=== PATIENT | female | born 1985 | race Caucasian/White ===

== ENCOUNTER 2017-01-16 19:59 | Emergency (ER) | payer MEDICARE, MEDICAID ==
[2017-01-16 20:08] VITALS: BP 112/78
--- NOTE | 2017-01-16 21:28 | EDM.PDOC ---
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 the patient reports that her first symptoms were started on of this week. She was seen at the [facility] . she had a wet prep performed which was positive for bacterial vaginosis. She started on metronidazole twice a day for 7 days. She states that she has been taking this but she is having symptoms of a dry mouth, a bad taste in her mouth and other side effects. States that the itching and burning is continuing. She says she has vaginal burning all the time. She denies any vaginal discharge. She denies any fevers, chills, nausea or vomiting. States that she shower prior to coming to the ER she showered and used soap free of dyes and perfumes. 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 She states that she did not have any lesions. She is currently on valcyclovir prophylactically. Patient reports that she has not been sexual active in several months. She denies any chance of . She denies any chance of STDs as she has been tested previously. - Related Data Allergies/ADRs: Allergies Allergy/AdvReac Type Severity Reaction Status Date / Time No Known Allergies Allergy Verified 01/16/17 20:08 Home Meds: Home Meds Advair. 1 puff INH BID 09/05/14 [History] Control. 1 tab PO DAILY 09/05/14 [History] Montelukast [Singulair] 10 mg PO DAILY 09/05/14 [History] Omeprazole [Prilosec] 20 mg PO BID 09/05/14 [History] Albuterol Sulfate [Albuterol Sulfate HFA] 8.5 gm IH Q4HR PRN 02/16/15 [History] FLUoxetine [PROzac] 20 mg PO DAILY 05/08/15 [History] Cetirizine [ZyrTEC] 10 mg PO DAILY #30 tablet 05/23/16 [Rx] Valcyclovir. 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) Other OB/BYN History: 2006 Psychiatric History: Reports: Anxiety - Infectious Disease History 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, MRSA Social & Family History - Family History Family Medical History: Noncontributory - Tobacco Use Smoking Status *Q: Current Every Day Smoker Years of Tobacco use: 12 Packs/Tins Daily: 1 Second Hand Smoke Exposure: No - Caffeine Use Caffeine Use: Reports: Soda - Alcohol Use Days Per Week of Alcohol Use: 0 - Recreational Drug Use Recreational Drug Use: No - Living Situation & Occupation Living situation: Reports: alone ED ROS GENERAL - Review of Systems Review Of Systems: See Below Constitutional: Denies: fever, chills GI/Abdominal: Denies: Nausea, Vomiting : Reports: other (vaginal burning and itching; denies vaginal discharge ) ED EXAM, RENAL/ - Physical Exam Exam: See Below Exam Limited By: No limitations General Appearance: alert, WD/WN, no apparent distress Respiratory/Chest: no respiratory distress, lungs clear, normal breath sounds Cardiovascular: normal peripheral pulses, regular rate, rhythm, no murmur (Female) Exam: Normal external exam, Other (refuse a spec exam; labia majoria is erythematous and slightly swollen; no discharge appreciated). No: Vaginal discharge Neurological: alert, oriented Psychiatric: normal affect, normal mood Skin Exam: Warm, Dry, Normal color Course - Vital Signs Last Recorded V/S: Last Vital Signs Temp 36.8 C 01/16/17 20:06 Pulse 80 01/16/17 20:06 Resp 18 01/16/17 20:06 BP 112/78 01/16/17 20:06 Pulse Ox 100 01/16/17 20:06 - Orders/Labs/Meds Labs: Laboratory Tests 01/16/17 Range/Units 20:37 Urine Color Yellow (Yellow) Urine Appearance Clear (Clear) Urine pH 5.0 (5.0-8.0) Ur Specific [place] > or = 1.030 (1.005-1.030) Urine Protein Negative (Negative) Urine Glucose (UA) Negative (Negative) Urine Ketones Trace H (Negative) Urine Occult Blood Negative (Negative) Urine Nitrite Negative (Negative) Urine Bilirubin Negative (Negative) Urine Urobilinogen 0.2 (0.2-1.0) Ur Leukocyte Esterase Trace H (Negative) Urine RBC 0-5 (0-5) /hpf Urine WBC 0-5 (0-5) /hpf Urine Bacteria Rare (FEW) /hpf Urine Mucus Few (FEW) /hpf - Re-Assessments/Exams Free Text/Narrative Re-Assessment/Exam: 01/16/17 21:23 UA has trace ketones and trace leuks. Wet prep is negative for Alisha, bacterial vaginosis and Trichomonas. I will switch the patient from oral metronidazole to vaginal MetroGel as I feel this will decrease her symptoms. I will have her continue on this despite her wet prep being negative today. I am unsure what the result was at [facility] on . Calmoseptine applied to the vaginal area prior to discharge for symptom relief. Instructions as documented. Departure - Departure Time of Disposition: 21:24 Disposition: Home, Self-Care 01 Condition: fair Clinical Impression: Bacterial vaginosis Prescriptions: metroNIDAZOLE [Metrogel-Vaginal] 70 gm VG DAILY #5 gel.w.appl Instructions: Bacterial Vaginosis, [id number] Referrals: Terrie Malin PA-C [Primary Care Provider] - Forms: ED Department Discharge Additional Instructions: Stopped taking the oral metronidazole Start metrogel one applicator full at hour of sleep vaginally x5 days. Follow up with your primary care provider this week if you're not feeling better. Use soaps free of dyes, perfumes or any other irritants to the area. Please returned ER should your symptoms change or worsen.
== END 2017-01-16 21:40 | disposition home or self-care (01) ==
LOC: JD.ED 19:59
DX: N76.0 Acute vaginitis (principal); F17.210 Nicotine dependence, cigarettes, uncomplicated; Z79.899 Other long term (current) drug therapy; Z87.440 Personal history of urinary (tract) infections
CPT/HCPCS: 81001; 87210; 87808; 99283; 99284

== ENCOUNTER 2017-01-26 21:06 | Emergency (ER) | payer MEDICARE, MEDICAID ==
[2017-01-26 21:41] VITALS: BP 112/85
--- NOTE | 2017-01-26 22:16 | EDM.PDOC ---
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 She states she has been using metrogel as prescribed as well as topical calmoseptine, given to her following her most recent visit on 09/24. She states she was sexually active with a new partner on 01/23/17, did use a condom, not sure if she is having a reaction to that. She denies any other change in vaginal discharge or detergents, undergarments, other body products, ect. Reports metrogel helped initially but about 3-4 days ago (around the time she was sexually active) she had worsening external genital rash. She denies that rash is consistent with herpes outbreak Symptom Onset Date: 01/16/17 Location: Reports: vaginal Quality: Reports: burning Associated Symptoms: Denies: vaginal discharge - Related Data Allergies/ADRs: Allergies Allergy/AdvReac Type Severity Reaction Status Date / Time No Known Allergies Allergy Verified 01/26/17 21:32 Home Meds: Home Meds Advair. 1 puff INH BID 09/05/14 [History] Control. 1 tab PO DAILY 09/05/14 [History] Montelukast [Singulair] 10 mg PO DAILY 09/05/14 [History] Omeprazole [Prilosec] 20 mg PO BID 09/05/14 [History] Albuterol Sulfate [Albuterol Sulfate HFA] 8.5 gm IH Q4HR PRN 02/16/15 [History] FLUoxetine [PROzac] 20 mg PO DAILY 05/08/15 [History] Cetirizine [ZyrTEC] 10 mg PO DAILY #30 tablet 05/23/16 [Rx] Valcyclovir. 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: 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 Psychiatric History: Reports: Anxiety Endocrine/Metabolic History: Reports: None Oncologic (Cancer) History: Reports: None - Infectious Disease History 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 Denies: fever, chills Respiratory: Reports: No Symptoms Cardiovascular: Reports: No symptoms GI/Abdominal: Reports: No symptoms : Reports: other (reports persistent vaginal itching as well as burning to skin. ). Denies: discharge, dysuria, hematuria, irregular menses Skin: Reports: rash, erythema (rash and mild erythema diffusely to external genitalia) ED EXAM, RENAL/ - Physical Exam Exam: See Below Exam Limited By: No limitations General Appearance: alert, WD/WN, no apparent distress Respiratory/Chest: lungs clear, normal breath sounds Cardiovascular: regular rate, rhythm, no murmur GI/Abdominal: normal bowel sounds, soft, non tender (Female) Exam: Normal speculum exam, Vaginal discharge, Other (erythematous vaginal mucosa. external bilateral labia, proximal to pubic symphysis is a folliculitis type rash. no ulcers, no vesicles. diffuse erythema present). No: Adnexal tenderness, Cervical discharge, Cervix motion tenderness Neurological: alert, oriented Psychiatric: normal affect, normal mood Course - Vital Signs Text/Narrative:: 2229 Wet prep done, as well as testing for GC/Chlamydia as patient does report having a new partner recently. Has not been tested for GC/Chlamydia for a least a couple of years. LMP was approx 01/04, has been regular. 2241 Wet prep is negative for yeast, clue cells, and trichomoniasis. 3 GC/Chlamydia pending, her hCG is negative. UA with 1+ occult blood, 1+ leuk esterace WBC 20-30 bacteria = many Urine culture is pending. Will notify patient of results once available. Discussed that with negative wet prep, I did not feel she needed to be treated with oral diflucan or oral metronidazole. Did recommend trial of topical nystatin, use as directed. Can also consider benadryl or other OTC antihistamine as directed for itching. Advised patient it was possible she is also having an allergic reaction to condom use. If symptoms not improving, may need to consider short course of oral steroid (medrol). Did recommend patient to f/u in family practice clinic in 3-5 days if not improving, recommend return to ED as needed. Last Recorded V/S: Last Vital Signs Temp 97.8 F 01/26/17 21:34 Pulse 86 01/26/17 21:34 Resp 16 01/26/17 21:34 BP 112/85 01/26/17 21:34 Pulse Ox - Orders/Labs/Meds Orders: Active Orders 24 hr Category Date Time Status GC/CHLAMYDIA BY PCR [MOLEC] Stat Lab 01/26/17 22:10 Received Labs: Laboratory Tests 01/26/17 01/26/17 Range/Units 21:53 21:53 Urine Color Yellow (Yellow) Urine Appearance Clear (Clear) Urine pH 6.0 (5.0-8.0) Ur Specific [place] > or = 1.030 (1.005-1.030) Urine Protein Trace H (Negative) Urine Glucose (UA) Negative (Negative) Urine Ketones Trace H (Negative) Urine Occult Blood 1+ H (Negative) Urine Nitrite Negative (Negative) Urine Bilirubin Negative (Negative) Urine Urobilinogen 0.2 (0.2-1.0) Ur Leukocyte Esterase 1+ H (Negative) Urine RBC 0-5 (0-5) /hpf Urine WBC 20-30 H (0-5) /hpf Ur Squamous Epith Cells 20-30 H (0-5) /hpf Urine Bacteria Many H (FEW) /hpf Urine Mucus Moderate H (FEW) /hpf Urine HCG, Qual Negative (NEGATIVE) Departure - Departure Time of Disposition: 22:43 Disposition: Home, Self-Care 01 Condition: good Clinical Impression: Vaginitis and vulvovaginitis Prescriptions: Nystatin [Nystatin Crm] 30 gm TOP BID #30 gm Instructions: Vaginitis Referrals: Terrie Malin PA-C [Primary Care Provider] - Forms: ED Department Discharge Additional Instructions: Your wet prep is negative, so you do not have indication of yeast infection, bacterial vaginosis, or trichomoniasis. Your gonorrhea/Chlamydia is pending, will notify you of results. I do not feel your need an oral anti-fungal medication, but will prescribe a topical anti-fungal cream to use. Also recommend use of benadryl, take as directed. Caution on drowsiness. This may help with itching and burning as it is also possible you are having an allergic reaction to specific condom used recently.If neither of these treatments improves your symptoms, recommend followup with your primary provider, or return to ED as needed - My Orders Last 24 Hours: My Active Orders 01/26/17 22:10 GC/CHLAMYDIA BY PCR [MOLEC] Stat - Assessment/Plan Last 24 Hours: My Active Orders 01/26/17 22:10 GC/CHLAMYDIA BY PCR [MOLEC] Stat
[2017-01-26 23:56] LABS: C. TRACHOMATIS BY PCR NOT DETECTED; N. GONORRHOEAE BY PCR NOT DETECTED
== END 2017-01-26 23:05 | disposition home or self-care (01) ==
LOC: JD.ED 21:06
DX: N76.0 Acute vaginitis (principal); J45.909 Unspecified asthma, uncomplicated; F41.9 Anxiety disorder, unspecified; Z79.899 Other long term (current) drug therapy
CPT/HCPCS: 81001; 81025; 87210; 87491; 87591; 87808; 99283

== ENCOUNTER 2017-02-18 12:36 | Emergency (ER) | payer MEDICARE, MEDICAID ==
[2017-02-18 12:49] VITALS: BP 118/74
[2017-02-18] MEDS ORDERED: Albuterol 0.083% 2.5 MG/3 ML Neb Soln NEB ONE (13:11)
--- NOTE | 2017-02-18 13:56 | EDM.PDOC ---
ED HISTORY OF PRESENT ILLNESS - General Chief Complaint: Chest Pain Stated Complaint: CHEST PAIN Time Seen by Provider: 02/18/17 12:51 Source of Information: Reports: Patient, RN notes reviewed - History of Present Illness INITIAL COMMENTS - FREE TEXT/NARRATIVE: 31-year-old female with complaints of shortness of breath and chest heaviness and tightness. She has had some mild cough and nasal and sinus congestion symptoms for a few days. She is currently on an antibiotic for sinus infection. She did use her handheld albuterol inhaler a short time ago but that "did not help much". No abdominal pain nausea or vomiting. - Related Data Allergies/ADRs: Allergies Allergy/AdvReac Type Severity Reaction Status Date / Time No Known Allergies Allergy Verified 02/18/17 12:45 Home Meds: Home Meds Advair. 1 puff INH BID 09/05/14 [History] Control. 1 tab PO DAILY 09/05/14 [History] Montelukast [Singulair] 10 mg PO DAILY 09/05/14 [History] Omeprazole [Prilosec] 20 mg PO BID 09/05/14 [History] Albuterol Sulfate [Albuterol Sulfate HFA] 8.5 gm IH Q4HR PRN 02/16/15 [History] FLUoxetine [PROzac] 20 mg PO DAILY 05/08/15 [History] Cetirizine [ZyrTEC] 10 mg PO DAILY #30 tablet 05/23/16 [Rx] Valcyclovir. 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: 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 Psychiatric History: Reports: Anxiety Endocrine/Metabolic History: Reports: None Oncologic (Cancer) History: Reports: None - Infectious Disease History 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, MRSA Social & Family History - Family History Family Medical History: Noncontributory - Tobacco Use Smoking Status *Q: Never Smoker Years of Tobacco use: 12 Packs/Tins Daily: 1 Second Hand Smoke Exposure: No - Caffeine Use Caffeine Use: Reports: Soda - Alcohol Use Days Per Week of Alcohol Use: 0 - Recreational Drug Use Recreational Drug Use: No - Living Situation & Occupation Living situation: Reports: alone ED ROS GENERAL - Review of Systems Review Of Systems: See Below Constitutional: Denies: fever, chills HEENT: Reports: Rhinitis, Sinus problem Respiratory: Reports: Shortness of Breath, Wheezing, Cough Cardiovascular: Reports: Chest pain (Mild anterior chest tightness) GI/Abdominal: Denies: Abdominal pain, Nausea, Vomiting Musculoskeletal: Reports: no symptoms Skin: Reports: no symptoms Neurological: Reports: No Symptoms ED EXAM, GENERAL - Physical Exam Exam: See Below General Appearance: alert, no apparent distress Eye Exam: bilateral eye: PERRL Nose: normal inspection Throat/Mouth: Normal inspection, Normal oropharynx Head: atraumatic. No: facial swelling Neck: supple, full range of motion. No: lymphadenopathy (L), lymphadenopathy (R ) Respiratory/Chest: no respiratory distress, lungs clear, wheezing (Slight). No : rhonchi, stridor Cardiovascular: regular rate, rhythm Extremities: normal inspection, normal range of motion Neurological: alert, no motor/sensory deficits Skin Exam: Warm, Dry, Normal color Course - Vital Signs Last Recorded V/S: Last Vital Signs Temp 97.2 F 02/18/17 12:46 Pulse 100 02/18/17 12:46 Resp 17 02/18/17 12:46 BP 118/74 02/18/17 12:46 Pulse Ox 100 02/18/17 13:22 - Orders/Labs/Meds Orders: Active Orders 24 hr Category Date Time Status RT Aerosol Therapy [RC] ASDIRECTED Care 02/18/17 13:11 Active Meds: Medications Discontinued Medications Generic Name Dose Route Start Last Admin Trade Name Freq PRN Reason Stop Dose Admin Albuterol 2.5 mg 02/18/17 13:11 02/18/17 13:21 Proventil Neb Soln NEB 02/18/17 13:12 2.5 mg ONETIME ONE Administration - Re-Assessments/Exams Free Text/Narrative Re-Assessment/Exam: 02/18/17 16:32 Have been an albuterol neb, that has helped her, discharge instructions as documented Departure - Departure Time of Disposition: 13:54 Disposition: Home, Self-Care 01 Condition: fair Clinical Impression: Dyspnea Qualifiers: Dyspnea type: shortness of breath Qualified Code(s): R06.02 - Shortness of breath Upper respiratory infection Qualifiers: URI type: unspecified URI Qualified Code(s): J06.9 - Acute upper respiratory infection, unspecified Instructions: Shortness of Breath, [id number], Upper Respiratory Infection, Adult, [id number] Referrals: Terrie Malin PA-C [Primary Care Provider] - Forms: ED Department Discharge Additional Instructions: Continue current medications, continue to use your inhaler as prescribed when needed for difficulty breathing, continue antibiotic as prescribed, followup clinic if not much better within 5-7 days as expected - My Orders Last 24 Hours: My Active Orders 02/18/17 13:11 RT Aerosol Therapy [RC] ASDIRECTED - Assessment/Plan Last 24 Hours: My Active Orders 02/18/17 13:11 RT Aerosol Therapy [RC] ASDIRECTED
== END 2017-02-18 14:04 | disposition home or self-care (01) ==
LOC: JD.ED 12:36
DX: J06.9 Acute upper respiratory infection, unspecified (principal); J45.909 Unspecified asthma, uncomplicated; F41.9 Anxiety disorder, unspecified; Z87.440 Personal history of urinary (tract) infections; Z79.899 Other long term (current) drug therapy
CPT/HCPCS: 94664; 99283; 99285-25

== ENCOUNTER 2017-12-28 22:46 | Emergency (ER) | payer MEDICARE, MEDICAID ==
[2017-12-28 22:58] VITALS: BP 116/78
--- NOTE | 2017-12-29 | EDM.PDOC ---
ED HPI GENERAL MEDICAL PROBLEM - General Chief Complaint: Abdominal Pain Stated Complaint: STOMACH PAIN Time Seen by Provider: 12/28/17 23:17 Source of Information: Reports: Patient History Limitations: Reports: No Limitations - History of Present Illness INITIAL COMMENTS - FREE TEXT/NARRATIVE: The patient had some abdominal pain on Wednesday. She felt she was constipated. She did not have a bowel movement for a few days. She took some medicine to help with that and she then had diarrhea. She has had a few episodes of diarrhea since then. She also has some generalized abdominal pain and she feels like she is gassy. She does not think she is . She is under lots of stress lately due to some issues with her puppy. She has no dysuria. She has no nasuea or vomiting and she can still eat. Onset: Gradual Duration: Day(s): (3) Location: Reports: Abdomen Quality: Reports: Ache Severity: Mild Improves with: Reports: None Worsens with: Reports: None Associated Symptoms: Reports: No Other Symptoms Abdomen Pain Score (Numeric/FACES): 6 - Related Data Allergies Allergy/AdvReac Type Severity Reaction Status Date / Time No Known Allergies Allergy Verified 02/18/17 12:45 Home Meds: Home Meds Advair. 1 puff INH BID 09/05/14 [History] Control. 1 tab PO DAILY 09/05/14 [History] Montelukast [Singulair] 10 mg PO DAILY 09/05/14 [History] Omeprazole [Prilosec] 20 mg PO BID 09/05/14 [History] Albuterol Sulfate [Albuterol Sulfate HFA] 8.5 gm IH Q4HR PRN 02/16/15 [History] FLUoxetine [PROzac] 20 mg PO DAILY 05/08/15 [History] Cetirizine [ZyrTEC] 10 mg PO DAILY #30 tablet 05/23/16 [Rx] Valcyclovir. 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) Other OB/BYN History: 2006 Psychiatric History: Reports: Anxiety Endocrine/Metabolic History: Reports: None Oncologic (Cancer) History: Reports: None - Infectious Disease History 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, MRSA Social & Family History - Family History Family Medical History: Noncontributory - Tobacco Use Smoking Status *Q: Never Smoker Years of Tobacco use: 12 Packs/Tins Daily: 1 Second Hand Smoke Exposure: No - Caffeine Use Caffeine Use: Reports: Soda - Alcohol Use Days Per Week of Alcohol Use: 0 - Recreational Drug Use Recreational Drug Use: No - Living Situation & Occupation Living situation: Reports: Alone ED ROS GENERAL - Review of Systems Review Of Systems: See Below Constitutional: Reports: No Symptoms HEENT: Reports: No Symptoms Respiratory: Reports: No Symptoms Cardiovascular: Reports: No Symptoms Endocrine: Reports: No Symptoms GI/Abdominal: Reports: Abdominal Pain, Diarrhea. Denies: Nausea, Vomiting : Reports: No Symptoms Musculoskeletal: Reports: No Symptoms ED EXAM, GI/ABD - Physical Exam Exam: See Below Exam Limited By: No Limitations General Appearance: Alert, No Apparent Distress Ears: Normal External Exam Nose: Normal Inspection Head: Atraumatic, Normocephalic Neck: Normal Inspection Respiratory/Chest: No Respiratory Distress, Lungs Clear, Normal Breath Sounds Cardiovascular: Regular Rate, Rhythm, No Edema, No Murmur GI/Abdominal Exam: Soft, Non-Tender, No Organomegaly, No Mass Back Exam: Normal Inspection Extremities: Normal Inspection Course - Vital Signs Last Recorded V/S: Last Vital Signs Temp 97.7 F 12/28/17 22:56 Pulse 96 12/28/17 22:56 Resp 16 12/28/17 22:56 BP 116/78 12/28/17 22:56 Pulse Ox 100 12/28/17 22:56 - Orders/Labs/Meds Orders: Active Orders 24 hr Category Date Time Status Abdomen 1V Upright [CR] Stat Exams 12/28/17 23:24 Taken Famotidine [Pepcid] Med 12/29/17 00:03 Once 20 mg PO ONETIME ONE - Re-Assessments/Exams Free Text/Narrative Re-Assessment/Exam: 12/29/17 00:00 I ordered an x-ray of her abdomen. 12/29/17 00:04 Her x-ray looks good. I will give her some pepcid and discharge her home. Departure - Departure Time of Disposition: 00:05 Disposition: Home, Self-Care 01 Condition: Good Clinical Impression: Abdominal pain - Discharge Information Referrals: Keenan Angela [Primary Care Provider] - 1 Week Forms: ED Department Discharge Additional Instructions: Take pepcid daily for 1 week. Drink plenty of water. Follow up with your doctor this week. Please return if you are worse. - My Orders Last 24 Hours: My Active Orders 12/28/17 23:24 Abdomen 1V Upright [CR] Stat 12/29/17 00:03 Famotidine [Pepcid] 20 mg PO ONETIME ONE - Assessment/Plan Last 24 Hours: My Active Orders 12/28/17 23:24 Abdomen 1V Upright [CR] Stat 12/29/17 00:03 Famotidine [Pepcid] 20 mg PO ONETIME ONE
[2017-12-29] MEDS: Famotidine 20 MG Tab PO ONE (00:11)
--- NOTE | 2017-12-29 07:15 | CR ---
Abdomen: Upright view of the abdomen was obtained. Comparison: Prior abdominal x-ray of 06/09/16. Bowel gas pattern appears normal. No free air is seen. Bony structures are unremarkable. No abnormal calcifications or discrete soft tissue abnormality is appreciated. Impression: 1. No abnormality is seen on upright view of the abdomen. Diagnostic code #1
== END 2017-12-29 00:17 | disposition home or self-care (01) ==
LOC: JD.ED 22:46
DX: R10.84 Generalized abdominal pain (principal); J45.909 Unspecified asthma, uncomplicated; Z79.899 Other long term (current) drug therapy
CPT/HCPCS: 74018; 99284; A9270; 99283

== ENCOUNTER 2018-02-06 13:48 | Emergency (ER) | payer MEDICARE, MEDICAID ==
[2018-02-06 14:28] VITALS: BP 113/85
--- NOTE | 2018-02-06 14:55 | EDM.PDOC ---
ED HPI GENERAL MEDICAL PROBLEM - General Chief Complaint: Genitourinary Problem Stated Complaint: UTI Time Seen by Provider: 02/06/18 14:38 Source of Information: Reports: Patient History Limitations: Reports: No Limitations - History of Present Illness INITIAL COMMENTS - FREE TEXT/NARRATIVE: Patient is a 32-year-old female who presents to the ED complaining of pain with urination. This started approximately one hour ago. States it matta when she pee 's. Feels like a wildfire down there. States yesterday symptoms started with increased frequency of urination with no pain up until today. Per patient feels like a wildfire down there. Complaining of feeling overly tired the past few days. Of note she's been on antibiotics for the past 2 weeks for sinus infection. Unknown type of antibiotic. She has has mild diarrhea since taking this med. Unchanged with no blood present. She has a history of UTIs in the past with similar symptoms as today. In addition has a history of genital herpes and yeast infections but states there are no rashes or sores present. There is no abnormal discharge and or foul odor. She denies any fevers and/or cva tenderness. She is currently on her menstrual cycle. Some minimal bleeding present. Otherwise denies any additional complaints at this time. Pelvic Pain Score (Numeric/FACES): 8 - Related Data Allergies Allergy/AdvReac Type Severity Reaction Status Date / Time No Known Allergies Allergy Verified 02/06/18 14:07 Home Meds: Home Meds Control. 1 tab PO DAILY 09/05/14 [History] Montelukast [Singulair] 10 mg PO DAILY 09/05/14 [History] Omeprazole [Prilosec] 20 mg PO BID 09/05/14 [History] Albuterol Sulfate [Albuterol Sulfate HFA] 8.5 gm IH Q4HR PRN 02/16/15 [History] FLUoxetine [PROzac] 20 mg PO DAILY 05/08/15 [History] Ondansetron [Zofran ODT] 4 mg PO Q6H PRN #20 tab.dis 11/07/16 [Rx] Ca Carbonate/Vitamin D3/Vit K [Calcium + D Soft Chewable Tab] 1 tab PO DAILY 11/25 [History] Cetirizine [ZyrTEC] 10 mg PO DAILY PRN 02/06/18 [History] Fluticasone/Salmeterol [Advair 500-50] 1 puff INH BID 02/06/18 [History] Multivitamin with Minerals [Multiple Vitamin] 1 tab PO DAILY 02/06/18 [History] valACYclovir HCl [valACYclovir] 1,000 mg PO DAILY 02/06/18 [History] Past Medical History - Past Health History Medical/Surgical History: Denies Medical/Surgical History HEENT History: Reports: Sinusitis Respiratory History: Reports: Asthma Gastrointestinal History: Reports: Chronic Constipation, GERD Other Gastrointestinal History: pt has constipation at times Genitourinary History: Reports: UTI, Recurrent Other Genitourinary History: Frequent UTI 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 (See Below) Other OB/BYN History: 2006 Psychiatric History: Reports: Anxiety Endocrine/Metabolic History: Reports: None Oncologic (Cancer) History: Reports: None - Infectious Disease History Infectious Disease History: Reports: Chicken Pox, Herpes, MRSA Social & Family History - Family History Family Medical History: Noncontributory - Tobacco Use Smoking Status *Q: Never Smoker Years of Tobacco use: 12 Packs/Tins Daily: 1 Second Hand Smoke Exposure: No - Caffeine Use Caffeine Use: Reports: Soda - Alcohol Use Days Per Week of Alcohol Use: 0 - Recreational Drug Use Recreational Drug Use: No - Living Situation & Occupation Living situation: Reports: Alone ED ROS GENERAL - Review of Systems Review Of Systems: ROS reveals no pertinent complaints other than HPI. ED EXAM, RENAL/ - Physical Exam Exam: See Below Exam Limited By: No Limitations General Appearance: Alert, WD/WN, No Apparent Distress Ears: Hearing Grossly Normal Nose: Normal Inspection Throat/Mouth: Normal Voice, No Airway Compromise Neck: Normal Inspection, Supple Respiratory/Chest: No Respiratory Distress, Lungs Clear, Normal Breath Sounds, No Accessory Muscle Use Cardiovascular: Normal Peripheral Pulses, Regular Rate, Rhythm GI/Abdominal: Normal Bowel Sounds, Soft, Non-Tender, No Organomegaly, No Distention Neurological: Alert, Oriented, CN II-XII Intact, Normal Cognition Psychiatric: Normal Affect, Normal Mood Skin Exam: Warm, Dry, Intact, Normal Color Course - Vital Signs Last Recorded V/S: Last Vital Signs Temp 97.3 F 02/06/18 14:05 Pulse 118 H 02/06/18 14:05 Resp 16 02/06/18 14:05 BP 113/85 02/06/18 14:05 Pulse Ox 98 02/06/18 14:05 - Orders/Labs/Meds Orders: Active Orders 24 hr Category Date Time Status CULTURE URINE [RM] Stat Lab 02/06/18 14:05 Received UA W/MICROSCOPIC [URIN] Stat Lab 02/06/18 14:05 Ordered Labs: Laboratory Tests 02/06/18 Range/Units 14:05 Urine Color Yellow (Yellow) Urine Appearance Slt cloudy H (Clear) Urine pH 6.0 (5.0-8.0) Ur Specific [place] 1.015 (1.005-1.030) Urine Protein 1+ H (Negative) Urine Glucose (UA) Negative (Negative) Urine Ketones Negative (Negative) Urine Occult Blood 2+ H (Negative) Urine Nitrite Negative (Negative) Urine Bilirubin Negative (Negative) Urine Urobilinogen 0.2 (0.2-1.0) Ur Leukocyte Esterase Negative (Negative) Urine RBC 5-10 H (0-5) /hpf Urine WBC 5-10 H (0-5) /hpf Ur Epithelial Cells 10-20 H (0-5) /hpf Urine Bacteria Moderate H (FEW) /hpf Urine Mucus Few (FEW) /hpf - Re-Assessments/Exams Free Text/Narrative Re-Assessment/Exam: UA is pending. Discussed with the patient if the UA comes back negative may have to perform a vaginal exam to evaluate for any rashes or sores present. She has deferred. She will see her primary care provider this coming Wk on followup. UA came back appears contaminated. Appearance cloudy, protein one plus, occult blood 2+, urine rbc's 5-10, urine wbc's 5-10, urine epithelial cells 10-20, bacteria moderate mucus few, nitrates negative, leukocyte esterase negative. Will obtain a urine culture. At this point she is on antibiotic of unknown name for sinus infection. Will not start on any additional antibiotics. She will see her primary care provider the first part of this week. Discharge instructions as documented. Departure - Departure Time of Disposition: 15:15 Disposition: Home, Self-Care 01 Condition: Good Clinical Impression: Dysuria Hematuria Qualifiers: Hematuria type: other microscopic Qualified Code(s): R31.29 - Other microscopic hematuria - Discharge Information Instructions: Dysuria Referrals: Keenan Angela [Primary Care Provider] - Forms: ED Department Discharge Additional Instructions: Urine sample was contaminated. I have obtained a culture of the urine to ensure nothing grows out over the next 48 hours suggesting infection. Plan will consist of you following-up with your PCP in the next few days for reevaluation. Again vaginal exam may be required if symptoms persist. When you see your PCP please bring the antibiotic with you that you are currently on to the appointment. Utilize Tylenol and ibuprofen in alternating fashion for discomfort. Return to the ED if you develop any new or worsening symptoms. - My Orders Last 24 Hours: My Active Orders 02/06/18 14:05 CULTURE URINE [RM] Stat UA W/MICROSCOPIC [URIN] Stat - Assessment/Plan Last 24 Hours: My Active Orders 02/06/18 14:05 CULTURE URINE [RM] Stat UA W/MICROSCOPIC [URIN] Stat
== END 2018-02-06 15:30 | disposition home or self-care (01) ==
LOC: JD.ED 13:48
DX: R30.0 Dysuria (principal); R31.29 Other microscopic hematuria; J45.909 Unspecified asthma, uncomplicated; Z79.899 Other long term (current) drug therapy
CPT/HCPCS: 81001; 87086; 99282; 99283

== ENCOUNTER 2018-02-14 05:54 | Emergency (ER) | payer MEDICARE, MEDICAID ==
[2018-02-14 06:02] VITALS: BP 106/61
[2018-02-14] MEDS ORDERED: Ondansetron 4 MG Tab.DIS PO ONE (06:22)
[2018-02-14] MEDS ORDERED: Acetaminophen 325 MG Tab PO ONE (06:23)
[2018-02-14] MEDS ORDERED: Ondansetron 4 MG Tab.DIS ONE (06:36)
[2018-02-14] MEDS ORDERED: Lidocaine 1% with EPINEPHrine 1:100,000 20 ML MDV INJECT ONE (06:42)
--- NOTE | 2018-02-14 07:05 | EDM.PDOC ---
ED HPI GENERAL MEDICAL PROBLEM - General Chief Complaint: Lower Extremity Injury/Pain Stated Complaint: POSS ANKLE INJURY Time Seen by Provider: 02/14/18 06:05 Source of Information: Reports: Patient History Limitations: Reports: No Limitations - History of Present Illness INITIAL COMMENTS - FREE TEXT/NARRATIVE: the patient is a 32-year-old female with a chief complaint of left ankle pain. this morning. No recent unusual activity. She has pain on the outside of her left ankle. Worse with walking. Pain is currently severe.She did take 200 mg of ibuprofen last evening before bed. No fever. recently completed a course of antibiotics for sinusitis. No additional joint pain. Left Ankle Pain Score (Numeric/FACES): 9 - Related Data Allergies Allergy/AdvReac Type Severity Reaction Status Date / Time No Known Allergies Allergy Verified 02/06/18 14:07 Home Meds: Home Meds Control. 1 tab PO DAILY 09/05/14 [History] Montelukast [Singulair] 10 mg PO DAILY 09/05/14 [History] Omeprazole [Prilosec] 20 mg PO BID 09/05/14 [History] Albuterol Sulfate [Albuterol Sulfate HFA] 8.5 gm IH Q4HR PRN 02/16/15 [History] FLUoxetine [PROzac] 20 mg PO DAILY 05/08/15 [History] Ondansetron [Zofran ODT] 4 mg PO Q6H PRN #20 tab.dis 11/07/16 [Rx] Ca Carbonate/Vitamin D3/Vit K [Calcium + D Soft Chewable Tab] 1 tab PO DAILY 11/25 [History] Cetirizine [ZyrTEC] 10 mg PO DAILY PRN 02/06/18 [History] Fluticasone/Salmeterol [Advair 500-50] 1 puff INH BID 02/06/18 [History] Multivitamin with Minerals [Multiple Vitamin] 1 tab PO DAILY 02/06/18 [History] valACYclovir HCl [valACYclovir] 1,000 mg PO DAILY 02/06/18 [History] Past Medical History - Past Health History Medical/Surgical History: Denies Medical/Surgical History HEENT History: Reports: Sinusitis Respiratory History: Reports: Asthma Gastrointestinal History: Reports: Chronic Constipation, GERD Other Gastrointestinal History: pt has constipation at times Genitourinary History: Reports: UTI, Recurrent Other Genitourinary History: Frequent UTI 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 (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 Below) Other OB/BYN History: 2007 Psychiatric History: Reports: Anxiety Endocrine/Metabolic History: Reports: None Oncologic (Cancer) History: Reports: None - Infectious Disease History Infectious Disease History: Reports: Chicken Pox, Herpes, MRSA Social & Family History - Family History Family Medical History: Noncontributory - Tobacco Use Smoking Status *Q: Never Smoker Years of Tobacco use: 12 Packs/Tins Daily: 1 Second Hand Smoke Exposure: No - Caffeine Use Caffeine Use: Reports: Soda - Alcohol Use Days Per Week of Alcohol Use: 0 - Recreational Drug Use Recreational Drug Use: No - Living Situation & Occupation Living situation: Reports: Alone Review of Systems - Review of Systems Review Of Systems: See Below Constitutional: Denies: Fever Respiratory: Reports: No Symptoms Cardiovascular: Reports: No Symptoms Musculoskeletal: Reports: Joint Pain Neurological: Reports: No Symptoms ED EXAM, GENERAL - Physical Exam Exam: See Below Exam Limited By: No Limitations General Appearance: Alert, WD/WN, No Apparent Distress Ears: Normal External Exam Nose: Normal Inspection Throat/Mouth: Normal Inspection Head: Atraumatic, Normocephalic Neck: Normal Inspection, Supple, Full Range of Motion Extremities: Other (L ankle: mild soft tissue swelling about the lateral malleolus. No erythema, warmth. Diffuse tenderness about the lateral malleolus. No deformity. Full range of motion.) Neurological: Alert, Oriented, Normal Cognition, No Motor/Sensory Deficits Psychiatric: Normal Affect, Normal Mood Skin Exam: Warm, Dry, Intact, Normal Color, No Rash ED JOINT ASPIRATION PROCEDURE - Joint Apsiration/Arthrocentesis Site: L ankle bursa Skin prep: Chlorhexidine (Hibiciens) Local anesthesia: Lidocaine: 1% with EPI Local Anesthetic Volume: 2cc Aspiration needle size: other (22g) Aspirate appearance: serous, sanguinous Aspirate amount in cc's: 1 Dressinx4(s), elastic/compression wrap Complications: No Course - Vital Signs Last Recorded V/S: Last Vital Signs Temp 36.0 C 02/14/18 06:00 Pulse 84 02/14/18 06:00 Resp 18 02/14/18 06:00 BP 106/61 02/14/18 06:00 Pulse Ox 97 02/14/18 06:00 - Orders/Labs/Meds Orders: Active Orders 24 hr Category Date Time Status DME for Discharge [COMM] Stat Oth 02/14/18 07:03 Ordered Meds: Medications Discontinued Medications Generic Name Dose Route Start Last Admin Trade Name Bakari PRN Reason Stop Dose Admin Acetaminophen 650 mg 02/14/18 06:23 02/14/18 06:28 Tylenol PO 02/14/18 06:24 650 mg NOW ONE Administration Lidocaine/Epinephrine 20 ml 02/14/18 06:42 02/14/18 07:14 Xylocaine 1% With Epinephrine 1:100,000 INJECT 02/14/18 06:43 20 ml ONETIME ONE Administration Ondansetron HCl 4 mg 02/14/18 06:22 02/14/18 06:28 Zofran Odt PO 02/14/18 06:23 4 mg ONETIME ONE Administration Ondansetron HCl Confirm 02/14/18 06:36 02/14/18 07:15 Zofran Odt Administered 02/14/18 06:37 Not Given Dose 4 mg .ROUTE .STK-MED ONE - Re-Assessments/Exams Free Text/Narrative Re-Assessment/Exam: 02/14/18 07:14 Minimal fluid aspirated. No external suggestion of infection. Suspect bursitis. Discussed need for elevation, NSAIDS, and rest. Will provide crutches. Recommended PCP f/u this week. Departure - Departure Time of Disposition: 07:03 Disposition: Home, Self-Care 01 Clinical Impression: Bursitis of left ankle - Discharge Information Instructions: Bursitis, [id number] Referrals: PCP,Unknown [Primary Care Provider] - Forms: ED Department Discharge Additional Instructions: 1. Keep ankle elevated when possible. 2. Use crutches until you can walk without pain. 3. Take tylenol (acetaminophen) and ibuprofen as needed for pain 4. Follow up with your primary care provider later this week - My Orders Last 24 Hours: My Active Orders 02/14/18 07:03 DME for Discharge [COMM] Stat - Assessment/Plan Last 24 Hours: My Active Orders 02/14/18 07:03 DME for Discharge [COMM] Stat
--- NOTE | 2018-02-14 07:23 | CR ---
Left ankle: Three views of the left ankle were obtained. Comparison: No prior ankle study. Ankle mortise is symmetric. No fracture, dislocation or other bony abnormality is seen. Impression: 1. No abnormality is identified on left ankle study. Diagnostic code #1
== END 2018-02-14 07:16 | disposition home or self-care (01) ==
LOC: JD.ED 05:54
DX: M71.572 Other bursitis, not elsewhere classified, left ankle and foot (principal); J45.909 Unspecified asthma, uncomplicated; Z79.899 Other long term (current) drug therapy
CPT/HCPCS: 20600; 73610; 99283; A9270; 20605

== ENCOUNTER 2018-04-03 17:17 | Emergency (ER) | payer MEDICARE, MEDICAID ==
[2018-04-03 17:28] VITALS: BP 116/79
--- NOTE | 2018-04-03 17:43 | EDM.PDOC ---
ED HPI GENERAL MEDICAL PROBLEM - General Chief Complaint: Abdominal Pain Stated Complaint: ABDOMINAL PAINS X 1 WEEK Time Seen by Provider: 04/03/18 17:43 Source of Information: Reports: Patient History Limitations: Reports: No Limitations - History of Present Illness INITIAL COMMENTS - FREE TEXT/NARRATIVE: 32-year-old female presents to the ED with diffuse periumbilical pain that is been coming and going for the better part of a week. It is aggravated a bit by the onset of her period which is been relatively heavy as compared to her normal periods 4 days ago. Her flow is now starting to settle down. She describes the pain is strongly colicky. She's been having loose diarrhea stools. She has not taken anything for bowel function for some period of time . Onset: Gradual Onset Date: 03/27/18 (She reports she's been having intermittent colicky or crampy abdominal pain for a week.) Duration: Day(s): Location: Reports: Abdomen Quality: Reports: Sharp, Stabbing, Other (Strong colicky component of pain) Severity: Severe (Not coping very well with it. Eating seems to make things worse) Improves with: Reports: Rest (And hot blanket or hot water bottle on her abdomen.) Worsens with: Reports: Eating Context: Denies: Activity, Exercise, Lifting, Sick Contact, Trauma, Other Associated Symptoms: Reports: Loss of Appetite, Nausea/Vomiting (Nausea but no vomiting). 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 1 tab PO DAILY 09/05/14 [History] Montelukast [Singulair] 10 mg PO DAILY 09/05/14 [History] Omeprazole [Prilosec] 20 mg PO BID 09/05/14 [History] Albuterol Sulfate [Albuterol Sulfate HFA] 8.5 gm IH Q4HR PRN 02/16/15 [History] FLUoxetine [PROzac] 20 mg PO DAILY 05/08/15 [History] Ondansetron [Zofran ODT] 4 mg PO Q6H PRN #20 tab.dis 11/07/16 [Rx] Ca Carbonate/Vitamin D3/Vit K [Calcium + D Soft Chewable Tab] 1 tab PO DAILY 11/25 [History] Cetirizine [ZyrTEC] 10 mg PO DAILY PRN 02/06/18 [History] Fluticasone/Salmeterol [Advair 500-50] 1 puff INH BID 02/06/18 [History] Multivitamin with Minerals [Multiple Vitamin] 1 tab PO DAILY 02/06/18 [History] valACYclovir HCl [valACYclovir] 1,000 mg PO DAILY 02/06/18 [History] Past Medical History - Past Health History Medical/Surgical History: Denies Medical/Surgical History HEENT History: Reports: Sinusitis Respiratory History: Reports: Asthma Gastrointestinal History: Reports: Chronic Constipation, GERD Other Gastrointestinal History: pt has constipation at times Genitourinary History: Reports: UTI, Recurrent Other Genitourinary History: Frequent UTI 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 (See Below) Other OB/BYN History: 2006 Psychiatric History: Reports: Anxiety Endocrine/Metabolic History: Reports: None Oncologic (Cancer) History: Reports: None - Infectious Disease History Infectious Disease History: Reports: Chicken Pox, Herpes, MRSA Social & Family History - Family History Family Medical History: Noncontributory - Tobacco Use Smoking Status *Q: Never Smoker - Caffeine Use Caffeine Use: Reports: Soda - Living Situation & Occupation Living situation: Reports: Alone ED ROS GENERAL - Review of Systems Review Of Systems: See Below Constitutional: Reports: Malaise, Weakness, Fatigue, Decreased Appetite, Weight Loss. Denies: Fever, Chills HEENT: Reports: No Symptoms Respiratory: Reports: No Symptoms Cardiovascular: Reports: No Symptoms Endocrine: Reports: No Symptoms GI/Abdominal: Reports: Abdominal Pain (See history of present illness), Diarrhea (Does have been loose.) Skin: Reports: No Symptoms Neurological: Reports: No Symptoms Psychiatric: Reports: No Symptoms Hematologic/Lymphatic: Reports: No Symptoms ED EXAM, GI/ABD - Physical Exam Exam: See Below Exam Limited By: No Limitations General Appearance: Alert, Moderate Distress Eyes: Bilateral: Normal Appearance (No jaundice.) Respiratory/Chest: No Respiratory Distress, Lungs Clear, Normal Breath Sounds, Chest Non-Tender Cardiovascular: Normal Peripheral Pulses, Regular Rate, Rhythm, No Edema, No Gallop, No Murmur, No Rub GI/Abdominal Exam: Tender (Hyperactive bowel sounds. Tenderness particularly right lower quadrant with palpable mass which I believe to be colon.), Abnormal Bowel Sounds, Other (No surgical scars) Back Exam: Normal Inspection, Full Range of Motion. No: CVA Tenderness (L), CVA Tenderness (R) Extremities: Normal Inspection, Normal Range of Motion, Non-Tender, No Pedal Edema Neurological: Alert, Oriented, CN II-XII Intact, Normal Cognition Psychiatric: Tearful, Other (Very dramatic personality) Skin Exam: Warm, Dry, Intact, Normal Color, No Rash Course - Vital Signs Last Recorded V/S: Last Vital Signs Temp 36.6 C 04/03/18 17:25 Pulse 102 H 04/03/18 17:25 Resp 16 04/03/18 17:25 BP 116/79 04/03/18 17:25 Pulse Ox 100 04/03/18 17:25 - Orders/Labs/Meds Orders: Active Orders 24 hr Category Date Time Status Abdomen 1V Flat [CR] Stat Exams 04/03/18 17:42 Taken URINALYSIS W/MICROSCOPIC [UA W/MICROSCOPIC] [URIN] Stat Lab 04/03/18 17:51 Ordered Labs: Laboratory Tests 04/03/18 Range/Units 17:51 Urine Color Light yellow (Yellow) Urine Appearance Clear (Clear) Urine pH 7.0 (5.0-8.0) Ur Specific [place] 1.025 (1.005-1.030) Urine Protein Negative (Negative) Urine Glucose (UA) Negative (Negative) Urine Ketones Negative (Negative) Urine Occult Blood Negative (Negative) Urine Nitrite Negative (Negative) Urine Bilirubin Negative (Negative) Urine Urobilinogen 0.2 (0.2-1.0) Ur Leukocyte Esterase Negative (Negative) Urine RBC 0-5 (0-5) /hpf Urine WBC 0-5 (0-5) /hpf Ur Epithelial Cells 0-5 (0-5) /hpf Urine Bacteria Not seen (FEW) /hpf Urine Mucus Not seen (FEW) /hpf Meds: Medications Discontinued Medications Generic Name Dose Route Start Last Admin Trade Name Freq PRN Reason Stop Dose Admin Dicyclomine HCl 20 mg 05/27/18 18:07 Bentyl PO 04/03/18 18:08 ONETIME ONE Ketorolac Tromethamine 60 mg 04/03/18 18:07 Toradol IM 04/03/18 18:08 ONETIME ONE Metoclopramide HCl 10 mg 04/03/18 18:08 Reglan PO 04/03/18 18:09 ONETIME ONE - Radiology Interpretation Free Text/Narrative:: 32-year-old female presents to the ED with complaints of diffuse recurrent abdominal pain for the last week. It is mostly periumbilical strong and cramping. Occasionally make her nauseated but she has not vomited. She states her stools for the most part of been loose and watery with the need to push. Things seem to be worse since. Started March 30. Menses been overly heavy this month. It is on time and as expected. She is denies being 6 active or possibility of . Emanation reveals hyperactive bowel sounds in all 4 quadrants. She is tender in her right lower quadrant right mid abdomen with palpable mass up with a full colon. There are no peritoneal signs. Plan KUB and urinalysis to be done. - Re-Assessments/Exams Free Text/Narrative Re-Assessment/Exam: 04/03/18 18:24 KUB reveals increased stool throughout the right hemicolon compatible with constipation the rest of the colon is empty. Therefore this is a stool plug. Plan Toradol 60 mg IM. Bentyl 20 mg by mouth with Reglan 10 mg by mouth. Will send her home with Citroma 7 ounces by mouth with 6 ounces of juice taken once. This will provide bowel cleanse. Urinalysis was normal. Departure - Departure Time of Disposition: 18:26 Disposition: Home, Self-Care 01 Condition: Fair Clinical Impression: Constipation by delayed colonic transit Abdominal pain Qualifiers: Abdominal location: generalized Qualified Code(s): R10.84 - Generalized abdominal pain - Discharge Information Instructions: Constipation, Adult Referrals: PCP,Unknown [Primary Care Provider] - Forms: ED Department Discharge Additional Instructions: Evaluation the emergency room today in regards to recurrent mid abdominal pain for the last week. Worse since. Started 4 days ago. Examination reveals active bowel sounds in all 4 quadrants. Palpable right hemicolon noted. X-ray of the abdomen confirms a stool plug involving the right entire hemicolon. The rest the bowel was empty meaning that you've been going but your bypassing the stool plug with watery stool. Treatment was instituted in the ED with Reglan 10 mg by mouth and Bentyl 20 mg by mouth which will ease the pain over the next hour. You were also given a shot of Toradol 60 mg which will ease pain from both painfull period source and bowl source of pain. - My Orders Last 24 Hours: My Active Orders 04/03/18 17:42 Abdomen 1V Flat [CR] Stat 04/03/18 17:51 URINALYSIS W/MICROSCOPIC [UA W/MICROSCOPIC] [URIN] Stat - Assessment/Plan Last 24 Hours: My Active Orders 04/03/18 17:42 Abdomen 1V Flat [CR] Stat 04/03/18 17:51 URINALYSIS W/MICROSCOPIC [UA W/MICROSCOPIC] [URIN] Stat
[2018-04-03] MEDS ORDERED: Dicyclomine 10 MG Cap PO ONE (18:07)
[2018-04-03] MEDS ORDERED: Ketorolac 60 MG/2 ML SDV IM ONE (18:07)
[2018-04-03] MEDS ORDERED: Metoclopramide 10 MG Tab PO ONE (18:08)
[2018-04-03] MEDS ORDERED: Magnesium Citrate Solution 296 ML Bottle PO ONE (18:26)
--- NOTE | 2018-04-04 08:36 | CR ---
Abdomen: Supine view of the abdomen was obtained. Comparison: Prior abdominal x-ray of 12/28/17. Bowel gas pattern appears normal. No abnormal calcifications or soft tissue abnormality is seen. Bony structures are unremarkable. Impression: 1. No abnormality is identified on supine abdominal x-ray. Diagnostic code #1
== END 2018-04-03 18:32 | disposition home or self-care (01) ==
LOC: JD.ED 17:17
DX: K59.01 Slow transit constipation (principal); J45.909 Unspecified asthma, uncomplicated; Z87.440 Personal history of urinary (tract) infections; Z79.899 Other long term (current) drug therapy; K21.9 Gastro-esophageal reflux disease without esophagitis
CPT/HCPCS: 74018; 81001; 96372; 99284; A9270; J1885

== ENCOUNTER 2018-04-04 17:35 | Emergency (ER) | payer MEDICARE, MEDICAID ==
[2018-04-04 17:46] VITALS: BP 106/54
[2018-04-04] MEDS ORDERED: Dicyclomine 10 MG Cap PO ONE (17:56)
--- NOTE | 2018-04-04 18:03 | EDM.PDOC ---
ED HPI GENERAL MEDICAL PROBLEM - General Chief Complaint: Abdominal Pain Stated Complaint: ABDOMINAL PAINS Time Seen by Provider: 04/04/18 17:47 Source of Information: Reports: Patient History Limitations: Reports: No Limitations - History of Present Illness INITIAL COMMENTS - FREE TEXT/NARRATIVE: Patient is a 32-year-old female who presents to the ED complaining of abdominal cramping. Patient states she was seen yesterday in the ED diagnosed with constipation received Bentyl and a bottle Mag citrate. She took half the bottle last night. Had loose stools. She also took some chocolate laxatives as well that evening and has had cramping throughout her abdomen since. She's had multiple loose stools today. No blood present. She's been eating and drinking with no issues. Appetite is good. States she started her menses this past Wednesday the . This is almost completed. She states menstrual cramps are improving. She denies being . She is not sexually active. She denies any fever, nausea/vomiting, chest pain, sob, right lower quadrant abdominal pain , right upper quadrant all pain, dysuria, rash, or any additional complaints. She did have x-ray of the abdomen obtained yesterday which revealed increased stool pattern throughout the right hemicolon. Abdomen Pain Score (Numeric/FACES): 7 - Related Data Allergies Allergy/AdvReac Type Severity Reaction Status Date / Time No Known Allergies Allergy Verified 02/06/18 14:07 Home Meds: Home Meds Control. 1 tab PO DAILY 09/05/14 [History] Montelukast [Singulair] 10 mg PO DAILY 09/05/14 [History] Omeprazole [Prilosec] 20 mg PO BID 09/05/14 [History] Albuterol Sulfate [Albuterol Sulfate HFA] 8.5 gm IH Q4HR PRN 02/16/15 [History] FLUoxetine [PROzac] 20 mg PO DAILY 05/08/15 [History] Ondansetron [Zofran ODT] 4 mg PO Q6H PRN #20 tab.dis 11/07/16 [Rx] Ca Carbonate/Vitamin D3/Vit K [Calcium + D Soft Chewable Tab] 1 tab PO DAILY 11/25 [History] Cetirizine [ZyrTEC] 10 mg PO DAILY PRN 02/06/18 [History] Fluticasone/Salmeterol [Advair 500-50] 1 puff INH BID 02/06/18 [History] Multivitamin with Minerals [Multiple Vitamin] 1 tab PO DAILY 02/06/18 [History] valACYclovir HCl [valACYclovir] 1,000 mg PO DAILY 02/06/18 [History] Past Medical History - Past Health History Medical/Surgical History: Denies Medical/Surgical History HEENT History: Reports: Sinusitis Respiratory History: Reports: Asthma Gastrointestinal History: Reports: Chronic Constipation, GERD Other Gastrointestinal History: pt has constipation at times Genitourinary History: Reports: UTI, Recurrent Other Genitourinary History: Frequent UTI 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 Below) Other OB/BYN History: 2006 Psychiatric History: Reports: Anxiety Endocrine/Metabolic History: Reports: None Oncologic (Cancer) History: Reports: None - Infectious Disease History Infectious Disease History: Reports: Chicken Pox, Herpes, MRSA Social & Family History - Family History Family Medical History: Noncontributory - Tobacco Use Smoking Status *Q: Never Smoker - Caffeine Use Caffeine Use: Reports: Soda - Recreational Drug Use Recreational Drug Use: No - Living Situation & Occupation Living situation: Reports: Alone ED ROS GENERAL - Review of Systems Review Of Systems: See Below Constitutional: Denies: Fever, Chills, Malaise, Weakness, Decreased Appetite HEENT: Reports: No Symptoms Respiratory: Reports: No Symptoms Cardiovascular: Reports: No Symptoms GI/Abdominal: Reports: Abdominal Pain (intermittent crampy pain), Diarrhea. Denies: Anorexia, Black Stool, Bloody Stool, Decreased Appetite, Difficulty Swallowing, Distension, Flatus, Hematochezia, Melena, Nausea, Vomiting : Reports: No Symptoms Musculoskeletal: Reports: No Symptoms Skin: Reports: No Symptoms Neurological: Reports: No Symptoms Psychiatric: Reports: No Symptoms ED EXAM, GI/ABD - Physical Exam Exam: See Below Exam Limited By: No Limitations General Appearance: Alert, WD/WN, No Apparent Distress Ears: Hearing Grossly Normal Nose: Normal Inspection Throat/Mouth: Normal Inspection, Normal Oropharynx, Normal Voice, No Airway Compromise Head: Atraumatic, Normocephalic Neck: Normal Inspection, Supple Respiratory/Chest: No Respiratory Distress, Lungs Clear, Normal Breath Sounds, No Accessory Muscle Use Cardiovascular: Normal Peripheral Pulses, Regular Rate, Rhythm GI/Abdominal Exam: Normal Bowel Sounds, Soft, Non-Tender, No Organomegaly, No Distention Back Exam: Normal Inspection. No: CVA Tenderness (L), CVA Tenderness (R) Extremities: Normal Inspection Neurological: Alert, Oriented, CN II-XII Intact, Normal Cognition, No Motor/ Sensory Deficits Psychiatric: Normal Affect, Normal Mood Skin Exam: Warm, Dry, Intact, Normal Color Course - Vital Signs Last Recorded V/S: Last Vital Signs Temp 97.6 F 04/04/18 17:42 Pulse 103 H 04/04/18 17:42 Resp 16 04/04/18 17:42 BP 106/54 L 04/04/18 17:42 Pulse Ox 100 04/04/18 17:42 - Orders/Labs/Meds Meds: Medications Discontinued Medications Generic Name Dose Route Start Last Admin Trade Name Bakari PRN Reason Stop Dose Admin Dicyclomine HCl 10 mg 04/04/18 17:56 04/04/18 18:05 Bentyl PO 04/04/18 17:57 10 mg ONETIME ONE Administration - Re-Assessments/Exams Free Text/Narrative Re-Assessment/Exam: Examination was benign. VSS stable. Educated patient she should not take laxatives regularly since this will cause increased abdominal cramps. Will start patient on miralax. Patient agrees with plan. Discharge instructions as documented. Departure - Departure Time of Disposition: 17:59 Disposition: Home, Self-Care 01 Condition: Good Clinical Impression: Abdominal cramping - Discharge Information Instructions: Abdominal Pain, Adult Referrals: Keenan Angela [Primary Care Provider] - Forms: ED Department Discharge Additional Instructions: Suspect your abdominal cramping is as of result of taking chocolate laxatives. The laxatives will cause increased raj of your bowel to help facilitate a bowel movement. You also received mag citrate yesterday which also will increase contracture of your bowels to help facilitate a bowel movement. You have a history of constipation which is chronic. Your examination today was essentially benign. You are afebrile with no nausea no vomiting. You have been able to eat and drink today with no issues. Suggest starting MiraLAX one capful every day with water or juice. Increase fiber in your diet. I also suggest working out a half hour every day. Follow-up with your primary care provider this week. Return to the ED if you develop any new or worsening symptoms.
== END 2018-04-04 18:21 | disposition home or self-care (01) ==
LOC: JD.ED 17:35
DX: R10.9 Unspecified abdominal pain (principal); J45.909 Unspecified asthma, uncomplicated; F41.9 Anxiety disorder, unspecified; Z79.899 Other long term (current) drug therapy
CPT/HCPCS: 99284; A9270; 99283

== ENCOUNTER 2018-05-04 01:02 | Emergency (ER) | payer MEDICARE, MEDICAID ==
[2018-05-04 01:17] VITALS: BP 173/158
--- NOTE | 2018-05-04 01:49 | EDM.PDOC ---
ED HPI GENERAL MEDICAL PROBLEM - General Chief Complaint: Abdominal Pain Stated Complaint: STOMACH HURTS Time Seen by Provider: 05/04/18 01:24 Source of Information: Reports: Patient History Limitations: Reports: No Limitations - History of Present Illness INITIAL COMMENTS - FREE TEXT/NARRATIVE: The patient states that she developed a "sore stomach" yesterday, 05/03/2018. She is unable to characterize the discomfort other than it is "sore". It is felt only in her central abdomen. She states that she thought that she might be constipated, therefore took MiraLAX yesterday, and had a normal bowel movement yesterday morning. No recent fever. The patient is not sure if she has had nausea, but there has not been any emesis. No urinary symptoms. The patient acknowledges that she has had similar symptoms in the past. Patient's PCP is Dr. Angela. The patient has not contacted Dr. Angela about this complaint. Abdominal Pain Score (Numeric/FACES): 8 - Related Data Allergies Allergy/AdvReac Type Severity Reaction Status Date / Time No Known Allergies Allergy Verified 02/06/18 14:07 Home Meds: Home Meds Control. 1 tab PO DAILY 09/05/14 [History] Montelukast [Singulair] 10 mg PO DAILY 09/05/14 [History] Omeprazole [Prilosec] 20 mg PO BID 09/05/14 [History] Albuterol Sulfate [Albuterol Sulfate HFA] 8.5 gm IH Q4HR PRN 02/16/15 [History] FLUoxetine [PROzac] 20 mg PO DAILY 05/08/15 [History] Ondansetron [Zofran ODT] 4 mg PO Q6H PRN #20 tab.dis 11/07/16 [Rx] Ca Carbonate/Vitamin D3/Vit K [Calcium + D Soft Chewable Tab] 1 tab PO DAILY 11/25 [History] Cetirizine [ZyrTEC] 10 mg PO DAILY PRN 02/06/18 [History] Fluticasone/Salmeterol [Advair 500-50] 1 puff INH BID 02/06/18 [History] Multivitamin with Minerals [Multiple Vitamin] 1 tab PO DAILY 02/06/18 [History] valACYclovir HCl [valACYclovir] 1,000 mg PO DAILY 02/06/18 [History] Past Medical History HEENT History: Reports: Allergic Rhinitis Respiratory History: Reports: Asthma (suspected, not confirmed) Gastrointestinal History: Reports: GERD, PUD (treated) 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), 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 (See Below) Psychiatric History: Reports: Anxiety - Infectious Disease History Infectious Disease History: Reports: Chicken Pox, Herpes, MRSA - Past Surgical History HEENT Surgical History: Reports: Naso-Sinus Surgery (05/25/2014), Oral Surgery ( [place] teeth extraction) Female Surgical History: Reports: D&C (x 1, 2006), Oophorectomy (unilateral, 2014) Social & Family History - Family History Family Medical History: Noncontributory - Tobacco Use Smoking Status *Q: Never Smoker Second Hand Smoke Exposure: No - Caffeine Use Caffeine Use: Reports: Soda - Recreational Drug Use Recreational Drug Use: No - Living Situation & Occupation Living situation: Reports: Alone ED ROS GENERAL - Review of Systems Review Of Systems: ROS reveals no pertinent complaints other than HPI. ED EXAM, GI/ABD - Physical Exam Exam: See Below Exam Limited By: No Limitations General Appearance: Alert, WD/WN, No Apparent Distress Eyes: Bilateral: Normal Appearance, EOMI Ears: Normal External Exam, Hearing Grossly Normal Nose: Normal Inspection, No Blood Throat/Mouth: Normal Inspection, Normal Lips, Normal Voice, No Airway Compromise Head: Atraumatic, Normocephalic Neck: Normal Inspection, Full Range of Motion Respiratory/Chest: No Respiratory Distress, Lungs Clear, Normal Breath Sounds, No Accessory Muscle Use Cardiovascular: Normal Peripheral Pulses, Regular Rate, Rhythm, No Edema, No Gallop, No JVD, No Murmur, No Rub GI/Abdominal Exam: Normal Bowel Sounds, Soft, Non-Tender (including the central abdomen), No Organomegaly, No Distention, No Abnormal Bruit, No Mass, Other ( Obese) (Female) Exam: Deferred Rectal (Female) Exam: Deferred Back Exam: Normal Inspection, Full Range of Motion. No: CVA Tenderness (L), CVA Tenderness (R) Extremities: Normal Inspection, Normal Range of Motion, No Pedal Edema, Normal Capillary Refill Neurological: Alert, Oriented, Normal Cognition, No Motor/Sensory Deficits Psychiatric: Normal Affect Skin Exam: Warm, Dry, Intact, Normal Color, No Rash Course - Vital Signs Last Recorded V/S: Last Vital Signs Temp 36.4 C 05/04/18 01:09 Pulse 111 H 05/04/18 01:09 Resp 20 05/04/18 01:09 BP 173/158 H 05/04/18 01:09 Pulse Ox 99 05/04/18 01:09 - Orders/Labs/Meds Orders: Active Orders 24 hr Category Date Time Status Abdomen 1V Upright [CR] Stat Exams 05/04/18 01:35 Ordered - Re-Assessments/Exams Free Text/Narrative Re-Assessment/Exam: 05/04/18 01:57 The patient presented with a complaint of a "sore stomach" felt in her central abdomen. On examination, her abdomen is soft, with normal bowel sounds, and no tenderness, even in the central abdomen. As she has not had a recent fever, and denied recent urinary symptoms, I felt that an upright abdominal radiograph was the only test necessary. This was ordered, however, has not yet been performed. I was just notified by the community health education coordinator that the patient wants to go home, that she has to get up early in the morning, and does not want to stay for the x-ray. Departure - Departure Time of Disposition: 01:58 Disposition: Home, Self-Care 01 Condition: Good Clinical Impression: Abdominal pain of unknown etiology - Discharge Information Referrals: Keenan Angela [Primary Care Provider] - Forms: ED Department Discharge Additional Instructions: You were seen in the emergency room for central abdominal discomfort. An x-ray of your abdomen was ordered, however, you have decided to go home without receiving the x-ray. Follow-up with your PCP, Dr. Angela, as needed. If any other problems, please do not hesitate to return to the ER. - My Orders Last 24 Hours: My Active Orders 05/04/18 01:35 Abdomen 1V Upright [CR] Stat - Assessment/Plan Last 24 Hours: My Active Orders 05/04/18 01:35 Abdomen 1V Upright [CR] Stat
== END 2018-05-04 02:05 | disposition home or self-care (01) ==
LOC: JD.ED 01:02
DX: R10.9 Unspecified abdominal pain (principal); J45.909 Unspecified asthma, uncomplicated; K21.9 Gastro-esophageal reflux disease without esophagitis; Z79.899 Other long term (current) drug therapy
CPT/HCPCS: 99283

== ENCOUNTER 2018-06-23 10:38 | Emergency (ER) | payer MEDICARE, MEDICAID ==
[2018-06-23 10:52] VITALS: BP 112/62
[2018-06-23] MEDS ORDERED: Dicyclomine 10 MG Cap PO ONE (11:52)
--- NOTE | 2018-06-23 11:56 | EDM.PDOC ---
ED HPI GENERAL MEDICAL PROBLEM - General Chief Complaint: Gastrointestinal Problem Stated Complaint: STOMACH CRAMPS Time Seen by Provider: 06/23/18 11:42 Source of Information: Reports: Patient History Limitations: Reports: No Limitations - History of Present Illness INITIAL COMMENTS - FREE TEXT/NARRATIVE: Patient is a 32-year-old female who presents to the ED complaining of diarrhea and cramping to her lower abdomen for the past week. States the cramping has been off and on. Most notably prior to needing to have a bowel movement. She's had a few episodes of diarrhea every day described as low volume. She continues to eat and drink as normal with no issues. She has had no nausea and no fever documented. She has no pain with urination as well. No blood present within her stool. No recent sick exposures. No ingestion of bad or questionable food and/ or recent out of country travel. She denies any recent antibiotic use nor does she have a history of C. difficile. She currently is on her period and states this may be a contributing factor to the worsening cramping. She was seen at the [facility] one week ago with stool studies obtained. She denies any fever, chills, sore throat, nausea vomiting, shortness of breath, chest pain , dysuria, rash, dizziness, or any additional complaints. Bilateral Lower Abdominal Pain Score (Numeric/FACES): 10 - Related Data Allergies Allergy/AdvReac Type Severity Reaction Status Date / Time No Known Allergies Allergy Verified 06/23/18 10:52 Home Meds: Home Meds Control. 1 tab PO DAILY 09/05/14 [History] Montelukast [Singulair] 10 mg PO DAILY 09/05/14 [History] Albuterol Sulfate [Albuterol Sulfate HFA] 8.5 gm IH Q4HR PRN 02/16/15 [History] FLUoxetine [PROzac] 20 mg PO DAILY 05/08/15 [History] Ca Carbonate/Vitamin D3/Vit K [Calcium + D Soft Chewable Tab] 1 tab PO DAILY 11/25 [History] Cetirizine [ZyrTEC] 10 mg PO DAILY PRN 02/06/18 [History] Fluticasone/Salmeterol [Advair 500-50] 1 puff INH BID 02/06/18 [History] Multivitamin with Minerals [Multiple Vitamin] 1 tab PO DAILY 02/06/18 [History] valACYclovir HCl [valACYclovir] 1,000 mg PO DAILY 02/06/18 [History] Past Medical History - Past Health History Medical/Surgical History: Denies Medical/Surgical History HEENT History: Reports: Allergic Rhinitis Respiratory History: Reports: Asthma Gastrointestinal History: Reports: GERD, PUD Other Gastrointestinal History: pt has constipation at times Genitourinary History: Reports: UTI, Recurrent Other Genitourinary History: Frequent UTI 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 , 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 Psychiatric History: Reports: Anxiety Endocrine/Metabolic History: Reports: None Oncologic (Cancer) History: Reports: None - Infectious Disease History Infectious Disease History: Reports: Chicken Pox, Herpes - Past Surgical History HEENT Surgical History: Reports: Naso-Sinus Surgery, Oral Surgery Female Surgical History: Reports: D&C, Oophorectomy Social & Family History - Family History Family Medical History: Noncontributory - Tobacco Use Smoking Status *Q: Never Smoker - Caffeine Use Caffeine Use: Reports: Soda - Recreational Drug Use Recreational Drug Use: No - Living Situation & Occupation Living situation: Reports: Alone ED ROS GENERAL - Review of Systems Review Of Systems: See Below Constitutional: Denies: Fever, Chills, Malaise, Weakness, Fatigue, Decreased Appetite HEENT: Reports: No Symptoms Respiratory: Reports: No Symptoms Cardiovascular: Reports: No Symptoms GI/Abdominal: Reports: Abdominal Pain (cramping prior to having a BM relieved with BM. ), Diarrhea (few episodes a day, low volume). Denies: Anorexia, Black Stool, Bloody Stool, Constipation, Decreased Appetite, Difficulty Swallowing, Distension, Flatus, Hematemesis, Hematochezia, Melena, Nausea, Stool Incontinence, Vomiting : Reports: No Symptoms Musculoskeletal: Reports: No Symptoms Skin: Reports: No Symptoms Neurological: Reports: No Symptoms ED EXAM, GI/ABD - Physical Exam Exam: See Below Exam Limited By: No Limitations General Appearance: Alert, WD/WN, No Apparent Distress Ears: Hearing Grossly Normal Nose: Normal Inspection Throat/Mouth: Normal Voice, No Airway Compromise Head: Atraumatic, Normocephalic Neck: Normal Inspection, Supple Respiratory/Chest: No Respiratory Distress, Lungs Clear, Normal Breath Sounds, No Accessory Muscle Use, Chest Non-Tender Cardiovascular: Normal Peripheral Pulses, Regular Rate, Rhythm, No Murmur GI/Abdominal Exam: Normal Bowel Sounds, Soft, Non-Tender, No Organomegaly, No Distention Back Exam: Normal Inspection. No: CVA Tenderness (L), CVA Tenderness (R) Extremities: Normal Inspection Neurological: Alert, Oriented, CN II-XII Intact, Normal Cognition, No Motor/ Sensory Deficits Psychiatric: Normal Affect, Normal Mood Skin Exam: Warm, Dry, Intact, Normal Color Course - Vital Signs Last Recorded V/S: Last Vital Signs Temp 96.9 F 06/23/18 10:47 Pulse 103 H 06/23/18 10:47 Resp 18 06/23/18 10:47 BP 112/62 06/23/18 10:47 Pulse Ox 99 06/23/18 10:47 Orthostatic Blood Pressure [ 102/85 Standing] Orthostatic Blood Pressure [ 118/85 Sitting] Orthostatic Blood Pressure [ 111/81 Supine] - Orders/Labs/Meds Orders: Active Orders 24 hr Category Date Time Status Orthostatic Vital Signs [RC] ASDIRECTED Care 06/23/18 11:52 Active Meds: Medications Discontinued Medications Generic Name Dose Route Start Last Admin Trade Name Freq PRN Reason Stop Dose Admin Dicyclomine HCl 10 mg 06/23/18 11:52 06/23/18 12:08 Bentyl PO 06/23/18 11:53 10 mg ONETIME ONE Administration - Re-Assessments/Exams Free Text/Narrative Re-Assessment/Exam: Examination was benign. Patient does not have hyperactive bowel sounds. Vital signs are stable. Will obtain orthostatic vitals and also ordered Bentyl 10 mg by mouth. Patient is not sexually active and is currently on control currently having her menstrual cycle. 06/23/18 12:35 Orthostatic vitals were negative. Patient is wishing to leave. Suspect patient has viral GI bug complicated by menstrual cycle. Patient has no other concerning symptoms and/or history suggesting further work up required. Patient agrees. Will discharge patient home with instructions as documented. The patient remained hemodynamically stable while under my care in the E.D. I discussed the concerning symptoms for which to return to the E.D. with the patient. The patient verbalized understanding. All questions were answered. We did receive results of the stool studies. C. difficile was negative. H pylori was negative. Sugar-like toxin was negative. Stool culture negative for salmonella, Shigella, there is any, and Escherichia coli 0157, and Campylobacter. Cryptosporidium was negative. Giardia was negative. Departure - Departure Time of Disposition: 12:38 Disposition: Home, Self-Care 01 Condition: Good Clinical Impression: Viral diarrhea, Abdominal cramping, Diarrhea - Discharge Information *PRESCRIPTION DRUG MONITORING PROGRAM REVIEWED*: Not Applicable *COPY OF PRESCRIPTION DRUG MONITORING REPORT IN PATIENT JUSTINE: Not Applicable Instructions: Viral Gastroenteritis, Adult, Food Choices to Help Relieve Diarrhea, Adult, Viral Illness, Adult Referrals: Josh Red MD [ED Physician] - Forms: ED Department Discharge Additional Instructions: Suspect cause of recent diarrhea is viral in etiology and should resolve on its own. Please read the educational material for foods to eat while having diarrhea. Push the fluids. Follow-up with PCP this coming week for reevaluation. Return to the ED if you develop any new or worsening symptoms. - My Orders Last 24 Hours: My Active Orders 06/23/18 11:52 Orthostatic Vital Signs [RC] ASDIRECTED - Assessment/Plan Last 24 Hours: My Active Orders 06/23/18 11:52 Orthostatic Vital Signs [RC] ASDIRECTED
== END 2018-06-23 12:50 | disposition home or self-care (01) ==
LOC: JD.ED 10:38
DX: R19.7 Diarrhea, unspecified (principal); B97.89 Other viral agents as the cause of diseases classified elsewhere; J45.909 Unspecified asthma, uncomplicated; K21.9 Gastro-esophageal reflux disease without esophagitis; Z79.899 Other long term (current) drug therapy; Z79.3 Long term (current) use of hormonal contraceptives
CPT/HCPCS: 99284; A9270

== ENCOUNTER 2018-06-27 15:57 | Emergency (ER) | payer MEDICARE, MEDICAID ==
[2018-06-27 16:11] VITALS: BP 116/71
--- NOTE | 2018-06-27 17:24 | EDM.PDOC ---
ED HPI GENERAL MEDICAL PROBLEM - General Chief Complaint: Abdominal Pain Stated Complaint: STOMACH IS SORE/HURTS REALLY BAD Time Seen by Provider: 06/27/18 16:09 Source of Information: Reports: Patient History Limitations: Reports: No Limitations - History of Present Illness INITIAL COMMENTS - FREE TEXT/NARRATIVE: The patient presents with abdominal pain and diarrhea. This has been going on for about 3 weeks. She has no nausea or vomiting. She can eat and dose so but some heavier foods make thing worse. She has been seen here multiple times and the walk in clinic today. Labs were done and her WBC was elevated at 13. She has no fever but she does have chills. She has no dysuria. Onset: Gradual Duration: Week(s): (3) Location: Reports: Abdomen Quality: Reports: Burning Severity: Moderate Improves with: Reports: None Worsens with: Reports: None Associated Symptoms: Reports: Fever/Chills. Denies: Chest Pain, Cough, Headaches, Nausea/Vomiting, Shortness of Breath lower abdomen Pain Score (Numeric/FACES): 6 - Related Data Allergies Allergy/AdvReac Type Severity Reaction Status Date / Time No Known Allergies Allergy Verified 06/27/18 16:10 Home Meds: Home Meds Control. 1 tab PO DAILY 09/05/14 [History] Montelukast [Singulair] 10 mg PO DAILY 09/05/14 [History] Albuterol Sulfate [Albuterol Sulfate HFA] 8.5 gm IH Q4HR PRN 02/16/15 [History] FLUoxetine [PROzac] 20 mg PO DAILY 05/08/15 [History] Ca Carbonate/Vitamin D3/Vit K [Calcium + D Soft Chewable Tab] 1 tab PO DAILY 11/25 [History] Cetirizine [ZyrTEC] 10 mg PO DAILY PRN 02/06/18 [History] Fluticasone/Salmeterol [Advair 500-50] 1 puff INH BID 02/06/18 [History] Multivitamin with Minerals [Multiple Vitamin] 1 tab PO DAILY 02/06/18 [History] valACYclovir HCl [valACYclovir] 1,000 mg PO DAILY PRN 02/06/18 [History] Dicyclomine [Bentyl] 10 mg PO TID PRN #20 cap 06/27/18 [Rx] Past Medical History - Past Health History Medical/Surgical History: Denies Medical/Surgical History HEENT History: Reports: Allergic Rhinitis Respiratory History: Reports: Asthma Gastrointestinal History: Reports: GERD, PUD Other Gastrointestinal History: pt has constipation at times Genitourinary History: Reports: UTI, Recurrent Other Genitourinary History: Frequent UTI 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 , 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 Psychiatric History: Reports: Anxiety Endocrine/Metabolic History: Reports: None Oncologic (Cancer) History: Reports: None - Infectious Disease History Infectious Disease History: Reports: Chicken Pox, Herpes - Past Surgical History HEENT Surgical History: Reports: Naso-Sinus Surgery, Oral Surgery Female Surgical History: Reports: D&C, Oophorectomy Social & Family History - Family History Family Medical History: Noncontributory - Tobacco Use Smoking Status *Q: Never Smoker Second Hand Smoke Exposure: No - Caffeine Use Caffeine Use: Reports: Coffee - Recreational Drug Use Recreational Drug Use: No - Living Situation & Occupation Living situation: Reports: Alone ED ROS GENERAL - Review of Systems Review Of Systems: See Below Constitutional: Reports: No Symptoms HEENT: Reports: No Symptoms Respiratory: Reports: No Symptoms Cardiovascular: Reports: No Symptoms Endocrine: Reports: No Symptoms GI/Abdominal: Reports: Abdominal Pain, Diarrhea. Denies: Nausea, Vomiting : Reports: No Symptoms Musculoskeletal: Reports: No Symptoms ED EXAM, GI/ABD - Physical Exam Exam: See Below Exam Limited By: No Limitations General Appearance: Alert, No Apparent Distress Ears: Normal External Exam Nose: Normal Inspection Head: Atraumatic, Normocephalic Neck: Normal Inspection Respiratory/Chest: No Respiratory Distress, Lungs Clear, Normal Breath Sounds Cardiovascular: Regular Rate, Rhythm, No Edema, No Murmur GI/Abdominal Exam: Soft, No Organomegaly, No Mass, Tender (Mild to moderate generalized pain) Course - Vital Signs Last Recorded V/S: Last Vital Signs Temp 97.8 F 06/27/18 16:00 Pulse 100 06/27/18 16:00 Resp 18 06/27/18 16:00 BP 116/71 06/27/18 16:00 Pulse Ox 99 06/27/18 16:00 - Re-Assessments/Exams Free Text/Narrative Re-Assessment/Exam: 06/27/18 17:20 I will get her on some bentyl. Departure - Departure Time of Disposition: 17:25 Disposition: Home, Self-Care 01 Condition: Good Clinical Impression: Abdominal pain - Discharge Information *PRESCRIPTION DRUG MONITORING PROGRAM REVIEWED*: No *COPY OF PRESCRIPTION DRUG MONITORING REPORT IN PATIENT JUSTINE: No Prescriptions: Dicyclomine [Bentyl] 10 mg PO TID PRN #20 cap PRN Reason: Pain Referrals: PCP,Unknown [Primary Care Provider] - Magdalena Red, PHARMACY STOCK CLERK [Nurse Practitioner] - 1 Day Additional Instructions: Drink plenty of fluids. Take the bentyl 10mg every 8 hours as needed for pain. Keep taking the probiotic daily. Follow up with Magdalena Red tomorrow. Please return if you are worse.
== END 2018-06-27 17:31 | disposition home or self-care (01) ==
LOC: JD.ED 15:57
DX: R10.84 Generalized abdominal pain (principal); J45.909 Unspecified asthma, uncomplicated; Z79.3 Long term (current) use of hormonal contraceptives; Z79.899 Other long term (current) drug therapy
CPT/HCPCS: 99283; 99284

== ENCOUNTER 2018-12-25 16:35 | Emergency (ER) | payer MEDICARE, MEDICAID ==
[2018-12-25 16:48] VITALS: BP 110/78
--- NOTE | 2018-12-25 17:21 | EDM.PDOC ---
ED HPI GENERAL MEDICAL PROBLEM - General Chief Complaint: Respiratory Problem Stated Complaint: BAD COUGH THAT WON'T GO AWAY Time Seen by Provider: 12/25/18 16:50 Source of Information: Reports: Patient, RN Notes Reviewed History Limitations: Reports: No Limitations - History of Present Illness INITIAL COMMENTS - FREE TEXT/NARRATIVE: The patient states that she has had a cough, productive of greenish sputum, since 12/21/2018. She denies associated fever, chills, dyspnea, or wheezing, and her symptoms are not positional or worse at night. She states that she was seen at the walk-in clinic that same day, . She states that no tests were done, but that she was diagnosed with bronchitis, and prescribed a codeine cough syrup, as well as an inhaler, whose name she does not recall, that she was instructed to take twice a day. In addition, the patient states that she took an [id number] cough syrup. None of these medicines seemed to help, therefore the patient states that she returned to the walk-in clinic following day, 12/22/2018, at which time a chest x-ray was done, and was reportedly negative. The patient was prescribed prednisone. This has also not helped, wherefore the patient came here. The patient's PCP is Desire Carver. - Related Data Allergies Allergy/AdvReac Type Severity Reaction Status Date / Time No Known Allergies Allergy Verified 12/25/18 16:46 Home Meds: Home Meds Control. 1 tab PO DAILY 09/05/14 [History] Montelukast [Singulair] 10 mg PO DAILY 09/05/14 [History] Albuterol Sulfate [Albuterol Sulfate HFA] 8.5 gm IH Q4HR PRN 02/16/15 [History] FLUoxetine [PROzac] 20 mg PO DAILY 05/08/15 [History] Ca Carbonate/Vitamin D3/Vit K [Calcium + D Soft Chewable Tab] 1 tab PO DAILY 11/25 [History] Cetirizine [ZyrTEC] 10 mg PO DAILY PRN 02/06/18 [History] Fluticasone/Salmeterol [Advair 500-50] 1 puff INH BID 02/06/18 [History] Multivitamin with Minerals [Multiple Vitamin] 1 tab PO DAILY 02/06/18 [History] valACYclovir HCl [valACYclovir] 1,000 mg PO DAILY PRN 02/06/18 [History] Dicyclomine [Bentyl] 10 mg PO TID PRN #20 cap 06/27/18 [Rx] Past Medical History HEENT History: Reports: Allergic Rhinitis Respiratory History: Reports: Asthma (suspected, not tested) Gastrointestinal History: Reports: GERD, PUD (treated) 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) Psychiatric History: Reports: Anxiety - Infectious Disease History Infectious Disease History: Reports: Chicken Pox, Herpes - Past Surgical History HEENT Surgical History: Reports: Naso-Sinus Surgery (05/25/2014), Oral Surgery ( wisdom teeth extraction) GI Surgical History: Reports: Colonoscopy (x 1), EGD (x 1) Female Surgical History: Reports: D&C (x 1), Oophorectomy (unilateral, 2015) Social & Family History - Family History Family Medical History: Noncontributory - Tobacco Use Smoking Status *Q: Never Smoker - Caffeine Use Caffeine Use: Reports: Coffee - Alcohol Use Alcohol Use History: No - Recreational Drug Use Recreational Drug Use: No - Living Situation & Occupation Living situation: Reports: Single, Alone Occupation: Unemployed ED ROS GENERAL - Review of Systems Review Of Systems: ROS reveals no pertinent complaints other than HPI. ED EXAM, GENERAL - Physical Exam Exam: See Below Exam Limited By: No Limitations General Appearance: Alert, WD/WN, No Apparent Distress Eye Exam: Bilateral Eye: EOMI, Normal Inspection Ears: Normal External Exam, Normal Canal, Hearing Grossly Normal, Normal TMs Nose: Normal Inspection, Other (Mild bilateral nasal mucosa edema) Throat/Mouth: Normal Inspection, Normal Lips, Normal Teeth, Normal Gums, Normal Oropharynx, Normal Voice, No Airway Compromise Head: Atraumatic, Normocephalic Neck: Normal Inspection, Supple, Non-Tender, Full Range of Motion. No: Lymphadenopathy (L), Lymphadenopathy (R) Respiratory/Chest: No Respiratory Distress, Lungs Clear, Normal Breath Sounds, No Accessory Muscle Use. No: Crackles, Rhonchi, Wheezing Cardiovascular: Normal Peripheral Pulses, Regular Rate, Rhythm, No Edema, No Gallop, No JVD, No Murmur, No Rub Peripheral Pulses: 4+: Radial (L), Radial (R) GI/Abdominal: Normal Bowel Sounds, Soft, Non-Tender, No Organomegaly, No Distention, No Abnormal Bruit, No Mass (Female) Exam: Deferred Rectal (Female) Exam: Deferred Back Exam: Normal Inspection, Full Range of Motion, NT Extremities: Normal Inspection, Normal Range of Motion, No Pedal Edema, Normal Capillary Refill Neurological: Alert, Oriented, Normal Cognition, No Motor/Sensory Deficits Psychiatric: Normal Affect Skin Exam: Warm, Dry, Intact, Normal Color, No Rash Course - Vital Signs Last Recorded V/S: Last Vital Signs Temp 36.2 C 12/25/18 16:46 Pulse 92 12/25/18 16:46 Resp 18 12/25/18 16:46 BP 110/78 12/25/18 16:46 Pulse Ox 98 12/25/18 16:46 - Re-Assessments/Exams Free Text/Narrative Re-Assessment/Exam: 12/25/18 17:15 The patient's oxygen saturation is 98% on room air, her lungs are entirely clear to auscultation bilaterally, she does not have a fever now, nor does she have a history of a recent fever, she denies having dyspnea, and her chest x- ray at the walk-in clinic on 12/22/2018 was negative. As such, I do not see an indication for emergency blood work or a repeat chest x-ray today, as the likelihood of a finding of pneumonia is near-zero. She appears to have a viral URI with post-nasal drip. I am recommending that she discontinue the over-the- counter cough syrup, as it is of no benefit to anyone, that she discontinue the codeine cough syrup, as it does not appear to be helping her, and that she discontinue the inhaler and prednisone, as they are of no use for a viral URI. I explained to the patient that there are no antiviral medications to get rid of a viral URI, that able simply have to run its course. The patient expressed understanding. Departure - Departure Time of Disposition: 17:18 Disposition: Home, Self-Care 01 Condition: Good Clinical Impression: Viral URI with cough - Discharge Information *PRESCRIPTION DRUG MONITORING PROGRAM REVIEWED*: Not Applicable *COPY OF PRESCRIPTION DRUG MONITORING REPORT IN PATIENT JUSTINE: Not Applicable Referrals: Desire Carver PA-C [Physician Mold Maker] - Additional Instructions: You were seen in the emergency room for a cough productive of green sputum since 12/21/2018, that has not responded to an [id number] cough syrup, a codeine cough syrup, an inhaler, or prednisone. Based on your history and physical examination, you are suffering from a viral URI with postnasal drip. You do not have bronchitis, and you do not have pneumonia. Unfortunately, there are no medicines to get rid of a viral URI - it will have to run its course. As discussed, we recommend that you discontinue taking the [id number] cough syrup, the codeine cough syrup, the inhaler, and the prednisone, as none of these are helping you. You should continue to take all of your usual medications. Follow-up with your PCP, Desire Carver, as needed. If any other problems, please do not hesitate to return to the ER.
== END 2018-12-25 17:30 | disposition home or self-care (01) ==
LOC: JD.ED 16:35
DX: J06.9 Acute upper respiratory infection, unspecified (principal); Z79.899 Other long term (current) drug therapy
CPT/HCPCS: 99282; 99283

== ENCOUNTER 2018-12-27 05:32 | Emergency (ER) | payer MEDICARE, MEDICAID | END 2018-12-27 05:52 | disposition left against medical advice (07) | LOC: JD.ED 05:32 | DX: Z53.21 Procedure and treatment not carried out due to patient leaving prior to being seen by health care provider (principal) ==

== ENCOUNTER 2019-01-16 22:37 | Emergency (ER) | payer MEDICARE, MEDICAID ==
--- NOTE | 2019-01-16 23:05 | EDM.PDOC ---
ED HPI GENERAL MEDICAL PROBLEM - General Chief Complaint: Lower Extremity Injury/Pain Stated Complaint: [facility] Time Seen by Provider: 01/16/19 22:58 - History of Present Illness INITIAL COMMENTS - FREE TEXT/NARRATIVE: 33-year-old female returns emergency room with left foot pain This is been getting worse the last couple of days she denies any trauma. Her back was out she was walking on it funny that's probably what caused it. She took a single ibuprofen and this did not seem to help.. I've examined her shoe gear she does not have much arch support these. Left Foot Pain Score (Numeric/FACES): 10 - Related Data Allergies Allergy/AdvReac Type Severity Reaction Status Date / Time No Known Allergies Allergy Verified 01/16/19 22:41 Home Meds: Home Meds Control. 1 tab PO DAILY 09/05/14 [History] Montelukast [Singulair] 10 mg PO DAILY 09/05/14 [History] Albuterol Sulfate [Albuterol Sulfate HFA] 8.5 gm IH Q4HR PRN 02/16/15 [History] FLUoxetine [PROzac] 20 mg PO DAILY 05/08/15 [History] Ca Carbonate/Vitamin D3/Vit K [Calcium + D Soft Chewable Tab] 1 tab PO DAILY 11/25 [History] Cetirizine [ZyrTEC] 10 mg PO DAILY PRN 02/06/18 [History] Fluticasone/Salmeterol [Advair 500-50] 1 puff INH BID 02/06/18 [History] Multivitamin with Minerals [Multiple Vitamin] 1 tab PO DAILY 02/06/18 [History] Dicyclomine [Bentyl] 10 mg PO TID PRN #20 cap 06/27/18 [Rx] Past Medical History - Past Health History Medical/Surgical History: Denies Medical/Surgical History HEENT History: Reports: Allergic Rhinitis Respiratory History: Reports: Asthma (suspected, not tested) Gastrointestinal History: Reports: GERD, PUD (treated) Other Gastrointestinal History: pt has constipation at times Genitourinary History: Reports: UTI, Recurrent Other Genitourinary History: Frequent UTI 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 Psychiatric History: Reports: Anxiety Endocrine/Metabolic History: Reports: None Oncologic (Cancer) History: Reports: None - Infectious Disease History Infectious Disease History: Reports: Chicken Pox, Herpes - Past Surgical History HEENT Surgical History: Reports: Naso-Sinus Surgery (05/25/2014), Oral Surgery ( wisdom teeth extraction) GI Surgical History: Reports: Colonoscopy (x 1), EGD (x 1) Female Surgical History: Reports: D&C (x 1), Oophorectomy (unilateral, 2015) Social & Family History - Family History Family Medical History: Noncontributory - Caffeine Use Caffeine Use: Reports: Coffee - Living Situation & Occupation Living situation: Reports: Single, Alone Occupation: Unemployed Review of Systems - Review of Systems Review Of Systems: See Below Constitutional: Reports: No Symptoms Respiratory: Reports: No Symptoms Cardiovascular: Reports: No Symptoms GI/Abdominal: Reports: No Symptoms ED EXAM, GENERAL - Physical Exam Exam: See Below Exam Limited By: No Limitations General Appearance: Alert, No Apparent Distress Respiratory/Chest: No Respiratory Distress, Lungs Clear, Normal Breath Sounds Cardiovascular: Regular Rate, Rhythm, No Edema, No Murmur Extremities: Other (Patient left foot normal neurologic and vascular status no obvious deformity no areas of redness warmth or ecchymosis she seems to have tenderness around the metatarsal heads.) Course - Vital Signs Last Recorded V/S: Last Vital Signs Temp 36.9 C 01/16/19 22:42 Pulse 107 H 01/16/19 22:42 Resp 18 01/16/19 22:42 BP 115/61 01/16/19 22:42 Pulse Ox 100 01/16/19 22:42 - Re-Assessments/Exams Free Text/Narrative Re-Assessment/Exam: 01/16/19 23:06 Long discussion with patient no recent trauma to the foot. It sounds like she's been wearing some worn-out shoe gear. I recommended she pick and shovel worker some Dr. Richards' s foot isn't certain or follow-up with a foot doctor in the short term she can use ibuprofen. Departure - Departure Time of Disposition: 23:07 Disposition: Home, Self-Care 01 Clinical Impression: Foot pain, left Clinical Impression: (Ruled Out): Foot pain, right - Discharge Information Additional Instructions: Return to the emergency room with any questions or problems. Try Dr. Richards's foot inserts follow-up with a foot doctor. Use ibuprofen the 200 mg [id number] tablets 2 or 3 every 8 hours with food
[2019-01-16 23:07] VITALS: BP 115/61
== END 2019-01-16 23:15 | disposition home or self-care (01) ==
LOC: JD.ED 22:37
DX: M79.672 Pain in left foot (principal); K21.9 Gastro-esophageal reflux disease without esophagitis; J45.909 Unspecified asthma, uncomplicated; Z79.899 Other long term (current) drug therapy
CPT/HCPCS: 99283

== ENCOUNTER 2019-01-22 09:29 | Emergency (ER) | payer MEDICARE, MEDICAID ==
[2019-01-22 09:40] VITALS: BP 93/51
[2019-01-22] MEDS ORDERED: Ondansetron 4 MG Tab.DIS PO ONE (10:08)
[2019-01-22] MEDS ORDERED: Ibuprofen 200 MG Tab PO ONE (10:10)
--- NOTE | 2019-01-22 10:10 | EDM.PDOC ---
ED HPI GENERAL MEDICAL PROBLEM - General Chief Complaint: Lower Extremity Injury/Pain Stated Complaint: KNEE PAIN Time Seen by Provider: 01/22/19 09:48 Source of Information: Reports: Patient, RN Notes Reviewed History Limitations: Reports: No Limitations - History of Present Illness INITIAL COMMENTS - FREE TEXT/NARRATIVE: The patient states that she has had right knee and right foot pain on and off for the past several months. She states that she has not previously had a medical evaluation for it. She states that she developed a flare of pain to both these areas last night. No recent injury. The patient states that she took 400 mg of ibuprofen around 08:00 this morning, but nothing else. The patient also reports that she is feeling nauseated. The patient's PCP is Desire Carver. Bilateral Knee Pain Score (Numeric/FACES): 9 - Related Data Allergies Allergy/AdvReac Type Severity Reaction Status Date / Time No Known Allergies Allergy Verified 01/22/19 09:40 Home Meds: Home Meds Control. 1 tab PO DAILY 09/05/14 [History] Montelukast [Singulair] 10 mg PO DAILY 09/05/14 [History] Albuterol Sulfate [Albuterol Sulfate HFA] 8.5 gm IH Q4HR PRN 02/16/15 [History] FLUoxetine [PROzac] 20 mg PO DAILY 05/08/15 [History] Ca Carbonate/Vitamin D3/Vit K [Calcium + D Soft Chewable Tab] 1 tab PO DAILY 11/25 [History] Cetirizine [ZyrTEC] 10 mg PO DAILY PRN 02/06/18 [History] Fluticasone/Salmeterol [Advair 500-50] 1 puff INH BID 02/06/18 [History] Multivitamin with Minerals [Multiple Vitamin] 1 tab PO DAILY 02/06/18 [History] Dicyclomine [Bentyl] 10 mg PO TID PRN #20 cap 06/27/18 [Rx] Past Medical History HEENT History: Reports: Allergic Rhinitis Respiratory History: Reports: Asthma (suspected) Gastrointestinal History: Reports: GERD, PUD (treated) 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) Psychiatric History: Reports: Anxiety - Infectious Disease History Infectious Disease History: Reports: Chicken Pox, Herpes - Past Surgical History HEENT Surgical History: Reports: Naso-Sinus Surgery (05/25/2014), Oral Surgery ( wisdom teeth extraction) GI Surgical History: Reports: Colonoscopy (x 1), EGD (x 1) Female Surgical History: Reports: D&C (x 1), Oophorectomy (unilateral 2015) Social & Family History - Family History Family Medical History: Noncontributory - Tobacco Use Smoking Status *Q: Never Smoker - Caffeine Use Caffeine Use: Reports: Soda - Alcohol Use Alcohol Use History: No - Recreational Drug Use Recreational Drug Use: No - Living Situation & Occupation Living situation: Reports: Single, Alone Occupation: Unemployed Review of Systems - Review of Systems Review Of Systems: ROS reveals no pertinent complaints other than HPI. ED EXAM, GENERAL - Physical Exam Exam: See Below Exam Limited By: No Limitations General Appearance: Alert, WD/WN, No Apparent Distress Extremities: Other (No visible abnormality to the right knee, when compared to the left, such as swelling, erythema, ecchymosis, or abrasion. The patient reports extreme tenderness to palpation of the right patella tendon, but no tenderness to palpation to the remainder of the knee, and there is no pain to PROM. No visible abnormality to the right foot, when compared to the left, such as swelling, erythema, ecchymosis, or abrasion. The patient reports extreme tenderness to palpation to the dorsal aspect of her right foot, but no tenderness to palpation elsewhere, or to PROM of the right ankle. Neurovascular status of the right lower extremity is intact.) Course - Vital Signs Last Recorded V/S: Last Vital Signs Temp 36.2 C 01/22/19 09:37 Pulse 93 01/22/19 09:37 Resp 18 01/22/19 09:37 BP 93/51 L 01/22/19 09:37 Pulse Ox 100 01/22/19 09:37 - Orders/Labs/Meds Orders: Active Orders 24 hr Category Date Time Status Foot 2V Rt [CR] Stat Exams 01/22/19 10:07 Taken Meds: Medications Discontinued Medications Generic Name Dose Route Start Last Admin Trade Name Freq PRN Reason Stop Dose Admin Ibuprofen 200 mg 01/22/19 10:10 01/22/19 10:21 Motrin PO 01/22/19 10:11 200 mg ONETIME ONE Administration Ondansetron HCl 4 mg 01/22/19 10:08 01/22/19 10:21 Zofran Odt PO 01/22/19 10:09 4 mg ONETIME ONE Administration - Re-Assessments/Exams Free Text/Narrative Re-Assessment/Exam: 01/22/19 10:09 The patient has tenderness to her right patellar tendon, suggesting tendinitis, but I don't suspect an intra-articular problem. The patient also has tenderness to the dorsal aspect of her foot, also likely due to tendinitis, however, I have ordered a right foot x-ray to rule out a stress fracture. In the meantime, the patient is complaining of nausea, therefore I ordered Zofran. Additionally, she stated that she took 2 tablets of ibuprofen; I have ordered a third. 01/22/19 10:23 2-view radiographs of the right foot reviewed. There appears to be a healing fracture at the base of the distal phalanx of the first toe, otherwise, no new fractures or dislocations are identified. Formal read per the Radiologist pending. 01/22/19 10:27 X-ray results discussed with the patient. As above, it appears the patient is suffering from some tendinitis. I recommended ibuprofen and ice. I will discharge her home. Departure - Departure Time of Disposition: 10:27 Disposition: Home, Self-Care 01 Condition: Good Clinical Impression: Patellar tendinitis of right knee, Tendinitis of right foot - Discharge Information *PRESCRIPTION DRUG MONITORING PROGRAM REVIEWED*: Not Applicable *COPY OF PRESCRIPTION DRUG MONITORING REPORT IN PATIENT JUSTINE: Not Applicable Instructions: Tendinitis Referrals: PCP,Deric [Primary Care Provider] - Desire Carver PA-C [Physician Chassis Inspector] - Forms: ED Department Discharge Additional Instructions: You were seen in the emergency room for right knee and right foot pain, after walking yesterday. Workup in the ER included x-rays of your right foot, which did not show any new fractures. Based on your history, physical examination, and ER x-rays, the cause of your right knee pain and right foot pain appears to be due to tendinitis. Take [id number] ibuprofen, 2-3 tablets (400-600 mg) every 8 hours, with food, as needed for discomfort. Consider applying ice packs to the front of your right knee and to the back of your right foot, for 10-15 minutes, several times a day. Follow-up with your PCP, Desire Carver, as needed. If any other problems, please do not hesitate to return to the ER. - My Orders Last 24 Hours: My Active Orders 01/22/19 10:07 Foot 2V Rt [CR] Stat - Assessment/Plan Last 24 Hours: My Active Orders 01/22/19 10:07 Foot 2V Rt [CR] Stat
--- NOTE | 2019-01-23 06:44 | CR ---
Right foot: Two views of the right foot were obtained. Comparison: Prior right foot exam of 04/12/11 is available. Joint spaces are preserved. No acute fracture or other bony abnormality is identified. Impression: 1. No abnormality is appreciated on two-view right foot exam. Diagnostic code #1
== END 2019-01-22 10:35 | disposition home or self-care (01) ==
LOC: JD.ED 09:29
DX: M76.51 Patellar tendinitis, right knee (principal); M77.51 Other enthesopathy of right foot and ankle; Z79.899 Other long term (current) drug therapy
CPT/HCPCS: 73620; 99283; A9270; 99282

== ENCOUNTER 2019-01-26 05:48 | Emergency (ER) | payer MEDICARE, MEDICAID ==
[2019-01-26 06:01] VITALS: BP 113/80
--- NOTE | 2019-01-26 06:19 | EDM.PDOC ---
ED HPI GENERAL MEDICAL PROBLEM - General Chief Complaint: Lower Extremity Injury/Pain Stated Complaint: RIGHT KNEE PAIN Time Seen by Provider: 01/26/19 06:02 Source of Information: Reports: Patient, Old Records (ED visit 01/22/2019), RN Notes Reviewed History Limitations: Reports: No Limitations - History of Present Illness INITIAL COMMENTS - FREE TEXT/NARRATIVE: The patient was seen by me in this ED just 4 days ago, 01/22/2019, for right knee and right foot pain that she had been experiencing on and off for the past several months. She reported at that time that she had not previously had a medical evaluation for, but that she had developed a flare of pain in both of those areas that I performed. No recent injury. On examination of her right knee, I found no visible abnormality, although the patient reported extreme tenderness to palpation of the right patellar tendon, with no tenderness to palpation of the remainder of the knee, and no pain to PROM. The patient was diagnosed with tendinitis and discharged home with the recommendation that she take ice the knee and take ibuprofen. I recommended that she follow-up with her PCP. The patient now returns, stating that the pain in her right knee and right foot was much less over the course of the week, and therefore she did not follow-up, however, she developed a flare of right knee pain again last night and did not feel like she could wait to see her PCP in a couple of hours. It is unclear what the patient was expecting that we could do, but she thought that we might be able to "do something" to make her pain go away right now. No trauma. No recent fever. The patient's PCP is Desire Carver. Right Knee Pain Score (Numeric/FACES): 10 - Related Data Allergies Allergy/AdvReac Type Severity Reaction Status Date / Time No Known Allergies Allergy Verified 01/26/19 06:01 Home Meds: Home Meds Control. 1 tab PO DAILY 09/05/14 [History] Montelukast [Singulair] 10 mg PO DAILY 09/05/14 [History] Albuterol Sulfate [Albuterol Sulfate HFA] 8.5 gm IH Q4HR PRN 02/16/15 [History] FLUoxetine [PROzac] 20 mg PO DAILY 05/08/15 [History] Ca Carbonate/Vitamin D3/Vit K [Calcium + D Soft Chewable Tab] 1 tab PO DAILY 11/25 [History] Cetirizine [ZyrTEC] 10 mg PO DAILY PRN 02/06/18 [History] Fluticasone/Salmeterol [Advair 500-50] 1 puff INH BID 02/06/18 [History] Multivitamin with Minerals [Multiple Vitamin] 1 tab PO DAILY 02/06/18 [History] Dicyclomine [Bentyl] 10 mg PO TID PRN #20 cap 06/27/18 [Rx] Past Medical History HEENT History: Reports: Allergic Rhinitis Respiratory History: Reports: Asthma (suspected) Gastrointestinal History: Reports: GERD, PUD (treated) 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) Psychiatric History: Reports: Anxiety - Infectious Disease History Infectious Disease History: Reports: Chicken Pox, Herpes - Past Surgical History HEENT Surgical History: Reports: Naso-Sinus Surgery (05/25/2014), Oral Surgery ( wisdom teeth extraction) GI Surgical History: Reports: Colonoscopy (x 1), EGD (x 1) Female Surgical History: Reports: D&C (x 1), Oophorectomy (unilateral 2015) Social & Family History - Family History Family Medical History: Noncontributory - Tobacco Use Smoking Status *Q: Never Smoker - Caffeine Use Caffeine Use: Reports: Soda - Alcohol Use Alcohol Use History: No - Recreational Drug Use Recreational Drug Use: No - Living Situation & Occupation Living situation: Reports: Single, Alone Occupation: Unemployed Review of Systems - Review of Systems Review Of Systems: ROS reveals no pertinent complaints other than HPI. ED EXAM, GENERAL - Physical Exam Exam: See Below Exam Limited By: No Limitations General Appearance: Alert, WD/WN, No Apparent Distress Extremities: Other (No visible abnormality to the right knee, when compared to the left, such as swelling, erythema, ecchymosis, or abrasion. There is tenderness to palpation of the right patellar tendon, but no tenderness to palpation to the remainder of the knee, and no pain to PROM. Neurovascular status of the right lower extremity is intact.) Course - Vital Signs Last Recorded V/S: Last Vital Signs Temp 36.4 C 01/26/19 05:58 Pulse 100 01/26/19 05:58 Resp 18 01/26/19 05:58 BP 113/80 01/26/19 05:58 Pulse Ox 97 01/26/19 05:58 - Re-Assessments/Exams Free Text/Narrative Re-Assessment/Exam: 01/26/19 06:21 I explained to the patient that the emergency department can evaluate patients to see if medical emergencies exist, however, we are not in a position to perform diagnostic tests, such as MRIs. I offered to refer the patient to Dr. Dumont, however, the patient refused, stating that she was just going to go home, since we don't do anything here in the ED. It is unclear what the patient was looking for from this visit. Clearly, it is not a diagnosis of the cause of her knee pain, since she refused referral to an Orthopedic Surgeon. I have been notified that the patient left the ED without waiting for discharge instructions. Departure - Departure Time of Disposition: 06:24 Disposition: Eloped 07 Condition: Good Clinical Impression: Patellar tendinitis of right knee - Discharge Information *PRESCRIPTION DRUG MONITORING PROGRAM REVIEWED*: Not Applicable *COPY OF PRESCRIPTION DRUG MONITORING REPORT IN PATIENT JUSTINE: Not Applicable Referrals: Desire Carver PA-C [Physician Principal Consulting Engineer] -
== END 2019-01-26 06:34 | disposition left against medical advice (07) ==
LOC: JD.ED 05:48
DX: M76.51 Patellar tendinitis, right knee (principal); J45.909 Unspecified asthma, uncomplicated; K21.9 Gastro-esophageal reflux disease without esophagitis; Z79.3 Long term (current) use of hormonal contraceptives; Z79.899 Other long term (current) drug therapy
CPT/HCPCS: 99282; 99283

== ENCOUNTER 2019-02-16 11:40 | Emergency (ER) | payer MEDICARE, MEDICAID ==
[2019-02-16 12:21] VITALS: BP 116/80
[2019-02-16] MEDS ORDERED: Metoclopramide 10 MG/2 ML SDV IVPUSH ONE (12:38)
[2019-02-16] MEDS ORDERED: LORazepam 2 MG/ML SDV IVPUSH ONE (12:38)
--- NOTE | 2019-02-16 12:42 | EDM.PDOC ---
ED HPI GENERAL MEDICAL PROBLEM - General Chief Complaint: Cardiovascular Problem Stated Complaint: DIZZY, ABDOMINAL PAIN Time Seen by Provider: 02/16/19 12:36 Source of Information: Reports: Patient History Limitations: Reports: No Limitations - History of Present Illness INITIAL COMMENTS - FREE TEXT/NARRATIVE: 33-year-old female attends the ED with a multitude of complaints. One is that she is suffering vertigo. If she holds still she does not feel any movement of the room. If she moves her head to the right she appreciates spinning of the room. This then is associated with development of nausea without vomiting. Patient is very anxious. She had to see oncology yesterday for hematology consult because of gradually increasing platelet count up to 1 million. She reports she had 10 vials of blood withdrawn. Cause of this remains unclear. She is scheduled for bone marrow biopsy but is terrified of this. Recent falls or closed head injuries. No recent sinus infections. He claims that she's had some chills throughout the night. Diffuse abdominal discomfort and nausea. Has not vomited. Has not been able to eat so far today. Ate a little bit at suppertime last night. Denies any roaring humming or buzzing in her ears. Onset: Today Onset Date: 02/16/19 Duration: Hour(s): Location: Reports: Head (She clinically has vertigo when she looks towards the right side.) Quality: Reports: Other (Diffuse abdominal discomfort) Severity: Moderate (with nausea) Improves with: Reports: Rest (Vertigo improves with rest. Stomach remains upset however.) Worsens with: Reports: Movement (Regular head particularly to the right side precipitates vertigo.) Context: Denies: Activity, Exercise, Lifting, Sick Contact, Trauma, Other Associated Symptoms: Reports: Headaches, Loss of Appetite (Location), Malaise, Nausea/Vomiting. 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 1 tab PO DAILY 09/05/14 [History] Montelukast [Singulair] 10 mg PO DAILY 09/05/14 [History] Albuterol Sulfate [Albuterol Sulfate HFA] 8.5 gm IH Q4HR PRN 02/16/15 [History] FLUoxetine [PROzac] 20 mg PO DAILY 05/08/15 [History] Ca Carbonate/Vitamin D3/Vit K [Calcium + D Soft Chewable Tab] 1 tab PO DAILY 11/25 [History] Cetirizine [ZyrTEC] 10 mg PO DAILY PRN 02/06/18 [History] Fluticasone/Salmeterol [Advair 500-50] 1 puff INH BID 02/06/18 [History] Multivitamin with Minerals [Multiple Vitamin] 1 tab PO DAILY 02/06/18 [History] Dicyclomine [Bentyl] 10 mg PO TID PRN #20 cap 06/27/18 [Rx] Past Medical History - Past Health History Medical/Surgical History: Denies Medical/Surgical History HEENT History: Reports: Allergic Rhinitis Respiratory History: Reports: Asthma Gastrointestinal History: Reports: GERD, PUD Other Gastrointestinal History: pt has constipation at times Genitourinary History: Reports: UTI, Recurrent Other Genitourinary History: Frequent UTI 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 Psychiatric History: Reports: Anxiety Endocrine/Metabolic History: Reports: None Oncologic (Cancer) History: Reports: None - Infectious Disease History Infectious Disease History: Reports: Chicken Pox, Herpes - Past Surgical History HEENT Surgical History: Reports: Naso-Sinus Surgery, Oral Surgery GI Surgical History: Reports: Colonoscopy, EGD Female Surgical History: Reports: D&C, Oophorectomy Social & Family History - Family History Family Medical History: Noncontributory - Tobacco Use Smoking Status *Q: Never Smoker - Caffeine Use Caffeine Use: Reports: Coffee - Recreational Drug Use Recreational Drug Use: No - Living Situation & Occupation Living situation: Reports: Single, Alone Occupation: Unemployed ED ROS GENERAL - Review of Systems Review Of Systems: See Below Constitutional: Reports: Chills, Malaise, Weakness, Fatigue, Decreased Appetite. Denies: Fever HEENT: Reports: Vertigo Respiratory: Reports: No Symptoms Cardiovascular: Reports: No Symptoms Endocrine: Reports: No Symptoms GI/Abdominal: Reports: Abdominal Pain, Constipation (History of intermittent constipation but she states her bowels been working well as of late), Decreased Appetite, Nausea (Generalized abdominal discomfort but no localized pain). Denies: Vomiting : Reports: Frequency Musculoskeletal: Reports: No Symptoms Skin: Reports: No Symptoms Neurological: Reports: Dizziness (Which is interpreted as a vertigo.), Difficulty Walking, Weakness, Gait Disturbance (Vertigo). Denies: Confusion, Headache, Numbness, Paresthesia, Pre-Existing Deficit, Seizure, Syncope, Tingling, Tremors, Trouble Speaking (Due to feeling off balance), Change in Speech Psychiatric: Reports: Anxiety Hematologic/Lymphatic: Reports: No Symptoms Immunologic: Reports: No Symptoms ED EXAM, GENERAL - Physical Exam Exam: See Below Exam Limited By: No Limitations General Appearance: Alert, Anxious (Anxious and agitated and tearful at times.) , Moderate Distress Eye Exam: Bilateral Eye: Nystagmus Ears: Other (she amount of wax in her right ear canal. The left TM is normal) Throat/Mouth: Other Head: Atraumatic Neck: Normal Inspection, Supple, Full Range of Motion. No: Lymphadenopathy (L) , Lymphadenopathy (R) Respiratory/Chest: No Respiratory Distress, Lungs Clear, Normal Breath Sounds, No Accessory Muscle Use. No: Decreased Breath Sounds Cardiovascular: Normal Peripheral Pulses, Regular Rate, Rhythm, No Edema, No Gallop, No Murmur, No Rub Peripheral Pulses: 3+: Posterior Tibial (L), Posterior Tibial (R), Dorsalis Pedis (L), Dorsalis Pedis (R) GI/Abdominal: Normal Bowel Sounds, Soft, Non-Tender, No Organomegaly, No Abnormal Bruit, No Mass, Pelvis Stable Extremities: Normal Inspection, Normal Range of Motion, Non-Tender, No Pedal Edema Neurological: Alert, Oriented, CN II-XII Intact, Normal Cognition, No Motor/ Sensory Deficits Psychiatric: Normal Affect, Normal Mood Skin Exam: Warm, Dry, Intact, Normal Color, No Rash Course - Vital Signs Last Recorded V/S: Last Vital Signs Temp 35.6 C 02/16/19 11:49 Pulse 96 02/16/19 11:49 Resp 20 02/16/19 11:49 BP 116/80 02/16/19 11:49 Pulse Ox 99 02/16/19 11:49 - Orders/Labs/Meds Orders: Active Orders 24 hr Category Date Time Status Abdomen 1V Flat [CR] Stat Exams 02/16/19 12:49 Taken Dextrose 5%-0.9% NaCl [Dextrose 5%-Normal Saline] 1,000 Med 02/16/19 12:45 Active ml IV ASDIRECTED Medication Orders Dextrose/Sodium Chloride (Dextrose 5%-Normal Saline) 1,000 mls @ 999 mls/hr IV ASDIRECTED JENA Last Admin: 02/16/19 13:30 Dose: 999 mls/hr Labs: Laboratory Tests 02/16/19 02/16/19 02/16/19 Range/Units 13:40 14:20 14:20 WBC 13.51 H (3.98-10.04) K/mm3 RBC 5.09 (3.98-5.22) M/mm3 Hgb 10.4 L (11.2-15.7) gm/L Hct 35.2 (34.1-44.9) % MCV 69.2 L (79.4-94.8) fl MCH 20.4 L (25.6-32.2) pg MCHC 29.5 L (32.2-35.5) g/dl RDW Std Deviation 47.0 H (36.4-46.3) fL Plt Count 734 H (182-369) K/mm3 MPV 9.0 L (9.4-12.3) fl Neutrophils % (Manual) 87 H (40-60) % Band Neutrophils % 0 (0-10) % Lymphocytes % (Manual) 8 L (20-40) % Atypical Lymphs % 0 % Monocytes % (Manual) 5 (2-10) % Eosinophils % (Manual) 0 L (0.7-5.8) % Basophils % (Manual) 0 L (0.1-1.2) Platelet Estimate Marked inc Poikilocytosis 1+ slight Anisocytosis 1+ slight RBC Morph Comment Not Reportable Sodium 136 (136-145) mEq/L Potassium 4.0 (3.5-5.1) mEq/L Chloride 103 (98-107) mEq/L Carbon Dioxide 22 (21-32) mEq/L Anion Gap 15.0 (5-15) BUN 14 (7-18) mg/dL Creatinine 0.9 (0.55-1.02) mg/dL Est Cr Clr Drug Dosing 88.07 mL/min Estimated GFR (MDRD) > 60 (>60) mL/min BUN/Creatinine Ratio 15.6 (14-18) Glucose 241 H (74-106) mg/dL Calcium 8.3 L (8.5-10.1) mg/dL Total Bilirubin 0.3 (0.2-1.0) mg/dL AST 12 L (15-37) U/L ALT 16 (14-59) U/L Alkaline Phosphatase 125 H (46-116) U/L C-Reactive Protein 3.2 H* (<1.0) mg/dL Total Protein 6.9 (6.4-8.2) g/dl Albumin 2.9 L (3.4-5.0) g/dl Globulin 4.0 gm/dL Albumin/Globulin Ratio 0.7 L (1-2) Urine Color Yellow (Yellow) Urine Appearance Slt cloudy H (Clear) Urine pH 8.5 H (5.0-8.0) Ur Specific [place] 1.020 (1.005-1.030) Urine Protein 2+ H (Negative) Urine Glucose (UA) Negative (Negative) Urine Ketones 1+ H (Negative) Urine Occult Blood Negative (Negative) Urine Nitrite Negative (Negative) Urine Bilirubin Negative (Negative) Urine Urobilinogen 0.2 (0.2-1.0) Ur Leukocyte Esterase Trace H (Negative) Urine RBC 0-5 (0-5) /hpf Urine WBC 10-20 H (0-5) /hpf Ur Epithelial Cells 0-5 (0-5) /hpf Urine Bacteria Moderate H (FEW) /hpf Urine Mucus Few (FEW) /hpf Meds: Medications Generic Name Dose Route Start Last Admin Trade Name Freq PRN Reason Stop Dose Admin Dextrose/Sodium Chloride 1,000 mls @ 999 mls/hr 02/16/19 12:45 02/16/19 13:30 Dextrose 5%-Normal Saline IV 999 mls/hr ASDIRECTED JENA Administration Discontinued Medications Generic Name Dose Route Start Last Admin Trade Name Freq PRN Reason Stop Dose Admin Lorazepam 1 mg 02/16/19 12:38 02/16/19 13:38 Ativan IVPUSH 02/16/19 12:39 1 mg ONETIME ONE Administration Metoclopramide HCl 7.5 mg 02/16/19 12:38 02/16/19 13:38 Reglan IVPUSH 02/16/19 12:39 7.5 mg ONETIME ONE Administration - Radiology Interpretation Free Text/Narrative:: 33-year-old female presents the ED with vertigo symptoms particularly when she turns her head to the right. There was no sustained nystagmus on exam. Finger- nose exam is also normal. Likely she does have a lot of cerumen in her right ear which may or may not be causing some of the problems left tympanic membrane is normal. She has associated nausea and diffuse abdominal discomfort. Patient is extremely anxious and somewhat tearful due to's dictation is being performed because of elevated platelet count up to 1 million. She did see Dr. [place] digital photo printer yesterday and had 10 vials of blood drawn. On examination she does have vertigo on looking to the right. Tissue the development of nausea without vomiting. Denies abdominal examination. Prone to constipation but states her bowels have been working well. Is also prone to urinary tract infection is complaining of some chills without any dysuria urgency or frequency. Plan CBC CMP and urinalysis. One view of the abdomen will be obtained. IV will be D5 normal saline at open. Given Reglan 7.5 mg IV and Ativan 1 mg IV for relief of nausea and vertigo. - Re-Assessments/Exams Free Text/Narrative Re-Assessment/Exam: 02/16/19 15:12 Patient had refused lab work. Therefore I can't confirm that there is any metabolic abnormalities or electrolyte imbalances causing her vertigo. It is most likely has a viral. He was given a liter of IV fluids and Ativan 1 mg with Reglan 7.5 mg which seemed to make her feel quite a bit better by the time the IV was infused. 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 Departure - Departure Time of Disposition: 15:04 Disposition: Home, Self-Care 01 Condition: Fair Clinical Impression: Nausea without vomiting Benign paroxysmal positional vertigo Qualifiers: Laterality: right Qualified Code(s): H81.11 - Benign paroxysmal vertigo, right ear Abdominal pain Qualifiers: Abdominal location: generalized Qualified Code(s): R10.84 - Generalized abdominal pain Instructions: Abdominal Pain, Adult Referrals: Desire Carver PA-C [Primary Care Provider] - Forms: ED Department Discharge Additional Instructions: Evaluation the emergency room today in regards to development of vertigo which is a sensation of being offkilter off balance when you move your head in certain directions. This is particularly noticeable when you rotated her head to the right side. When you are rest you do not have any symptoms. Vertigo as a spinning sensation whether either you feel like you're spinning or the room is spinning with movement of your head or neck. This is caused by fluid imbalance inside the middle ear cavity called the labyrinth which controls her sense of balance. You were found to be mildly dehydrated and therefore this should improve the vertigo somewhat. You're treated for nausea and mild vomiting and given medication that should help with vertigo for 6-8 hours. I would suggest picking up some anti-a tablets 12.5 mg 2 tablets every 8 hours for the next 3 days to try and bring the vertigo under control. Helps with nausea relief. Follow-up with personal care physician if any further problems occur - My Orders Last 24 Hours: My Active Orders 02/16/19 12:45 Dextrose 5%-0.9% NaCl [Dextrose 5%-Normal Saline] 1,000 ml IV ASDIRECTED 02/16/19 12:49 Abdomen 1V Flat [CR] Stat - Assessment/Plan Last 24 Hours: My Active Orders 02/16/19 12:45 Dextrose 5%-0.9% NaCl [Dextrose 5%-Normal Saline] 1,000 ml IV ASDIRECTED 02/16/19 12:49 Abdomen 1V Flat [CR] Stat
[2019-02-16] MEDS ORDERED: Dextrose 5%-0.9% NaCl 1,000 ML IV SCH (12:45)
--- NOTE | 2019-02-16 15:14 | CR ---
Abdomen: Supine view of the abdomen was obtained. Comparison: Prior abdominal x-ray of 04/03/18. Bowel gas pattern appears within normal limits. No abnormal calcifications or soft tissue abnormality is seen. Bony structures are unremarkable. Impression: 1. Nothing acute is seen on supine abdominal x-ray. Diagnostic code #1
== END 2019-02-16 15:20 | disposition home or self-care (01) ==
LOC: JD.ED 11:40
DX: H81.11 Benign paroxysmal vertigo, right ear (principal); R10.84 Generalized abdominal pain; R11.0 Nausea; F41.9 Anxiety disorder, unspecified; K21.9 Gastro-esophageal reflux disease without esophagitis; Z79.899 Other long term (current) drug therapy; Z88.1 Allergy status to other antibiotic agents
CPT/HCPCS: 36415; 74018; 80053; 81001; 85007; 85027; 86140; 96361; 96374; 96375; 99284; J2060; J2765; J7042

== ENCOUNTER 2019-08-17 19:22 | Emergency (ER) | payer MEDICARE, MEDICAID ==
[2019-08-17] MEDS ORDERED: Ondansetron 4 MG Tab.DIS PO ONE (19:55)
[2019-08-17] MEDS ORDERED: Dicyclomine 10 MG Cap PO ONE (19:55)
[2019-08-17 19:58] VITALS: BP 112/79; PULSE 101
--- NOTE | 2019-08-17 20:02 | EDM.PDOC ---
ED HPI GENERAL MEDICAL PROBLEM - General Chief Complaint: Abdominal Pain Stated Complaint: STOMACH HURTS Time Seen by Provider: 08/17/19 19:32 Source of Information: Reports: Patient, RN Notes Reviewed History Limitations: Reports: No Limitations - History of Present Illness INITIAL COMMENTS - FREE TEXT/NARRATIVE: Patient is a 33-year-old female who presents to the ED for evaluation of abdominal pain. Patient states she try to go to the walk-in clinic but was referred here for further evaluation and severity of her abdominal pain. Patient notes that she was diagnosed with C. difficile 3 weeks ago, and has been on vancomycin for this. She notes that her stools are improving, and did have a semi-formed stool yesterday. Patient states she is currently on her period as well. She notes that she is having abdominal pains that are gripping and/or cramping in nature. She has been using some Midol, and a heating pad for this. She notes that she also has an upset stomach and she's been drinking Powerade. She states she's been eating a lot of soup, but she had sausage, some dairy, and a soda yesterday, she does not think that that is sitting well with her stomach. The patient denies any fevers or chills, any feelings of being dizzy or lightheaded. She states that she had a peanut butter and jelly sandwich for lunch today. Middle Abdomen Pain Score (Numeric/FACES): 10 - Related Data Allergies Allergy/AdvReac Type Severity Reaction Status Date / Time azithromycin Allergy Other Verified 02/16/19 11:53 ciprofloxacin AdvReac Stomach Verified 02/16/19 11:53 Upset doxycycline AdvReac Stomach Verified 02/16/19 11:53 Upset moxifloxacin AdvReac Stomach Verified 02/16/19 11:53 Upset Home Meds: Home Meds Control. 1 tab PO DAILY 09/05/14 [History] Montelukast [Singulair] 10 mg PO DAILY 09/05/14 [History] Albuterol Sulfate [Albuterol Sulfate HFA] 8.5 gm IH Q4HR PRN 02/16/15 [History] FLUoxetine [PROzac] 20 mg PO DAILY 05/08/15 [History] Cetirizine [ZyrTEC] 10 mg PO DAILY PRN 02/06/18 [History] Fluticasone/Salmeterol [Advair 500-50] 1 puff INH BID 02/06/18 [History] Multivitamin with Minerals [Multiple Vitamin] 1 tab PO DAILY 02/06/18 [History] Dicyclomine [Bentyl] 10 mg PO TID PRN #20 cap 06/27/18 [Rx] Vancomycin 125 mg PO Q6H 08/17/19 [History] Past Medical History - Past Health History Medical/Surgical History: Denies Medical/Surgical History HEENT History: Reports: Allergic Rhinitis Respiratory History: Reports: Asthma Gastrointestinal History: Reports: GERD, PUD Other Gastrointestinal History: pt has constipation at times Genitourinary History: Reports: UTI, Recurrent Other Genitourinary History: Frequent UTI 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 Psychiatric History: Reports: Anxiety Endocrine/Metabolic History: Reports: None Oncologic (Cancer) History: Reports: None - Infectious Disease History Infectious Disease History: Reports: Chicken Pox, Herpes - Past Surgical History HEENT Surgical History: Reports: Naso-Sinus Surgery, Oral Surgery GI Surgical History: Reports: Colonoscopy, EGD Female Surgical History: Reports: D&C, Oophorectomy Social & Family History - Family History Family Medical History: Noncontributory - Tobacco Use Smoking Status *Q: Never Smoker - Caffeine Use Caffeine Use: Reports: Soda - Recreational Drug Use Recreational Drug Use: No - Living Situation & Occupation Living situation: Reports: Single, Alone Occupation: Unemployed ED ROS GENERAL - Review of Systems Review Of Systems: See Below Constitutional: Denies: Fever, Chills HEENT: Reports: No Symptoms Respiratory: Denies: Shortness of Breath Cardiovascular: Denies: Chest Pain GI/Abdominal: Reports: Abdominal Pain (generalized), Diarrhea (recent diagnosis of C. diff), Nausea. Denies: Constipation, Vomiting : Denies: Dysuria, Flank Pain, Frequency, Urgency Musculoskeletal: Reports: No Symptoms Skin: Reports: No Symptoms Neurological: Reports: No Symptoms Psychiatric: Reports: Anxiety Hematologic/Lymphatic: Reports: No Symptoms Immunologic: Reports: No Symptoms ED EXAM, GI/ABD - Physical Exam Exam: See Below Exam Limited By: No Limitations General Appearance: Alert, WD/WN, No Apparent Distress Eyes: Bilateral: Normal Appearance, EOMI Ears: Normal External Exam Nose: Normal Inspection Throat/Mouth: Normal Inspection, Normal Lips, Normal Teeth, Normal Gums, Normal Oropharynx, Normal Voice, No Airway Compromise Head: Atraumatic, Normocephalic Neck: Normal Inspection Respiratory/Chest: No Respiratory Distress, Lungs Clear, Normal Breath Sounds, No Accessory Muscle Use, Chest Non-Tender Cardiovascular: Normal Peripheral Pulses, Regular Rate, Rhythm, No Murmur GI/Abdominal Exam: Normal Bowel Sounds, Soft, No Distention, No Mass, Tender ( generalized). No: Guarding, Rigid, Rebound Extremities: Normal Inspection, Normal Capillary Refill Neurological: Alert, Oriented, Normal Cognition, No Motor/Sensory Deficits Psychiatric: Normal Affect, Normal Mood Skin Exam: Warm, Dry, Intact, Normal Color, No Rash Course - Vital Signs Last Recorded V/S: Last Vital Signs Temp 98.0 F 08/17/19 19:41 Pulse 101 H 08/17/19 19:41 Resp 20 08/17/19 19:41 BP 112/79 08/17/19 19:41 Pulse Ox 98 08/17/19 19:41 - Orders/Labs/Meds Meds: Medications Discontinued Medications Generic Name Dose Route Start Last Admin Trade Name Frediq PRN Reason Stop Dose Admin Dicyclomine HCl 20 mg 08/17/19 19:55 08/17/19 20:02 Bentyl PO 08/17/19 19:56 20 mg ONETIME ONE Administration Ondansetron HCl 4 mg 08/17/19 19:55 08/17/19 20:02 Zofran Odt PO 08/17/19 19:56 4 mg ONETIME ONE Administration - Re-Assessments/Exams Free Text/Narrative Re-Assessment/Exam: 08/17/19 20:03 Patient presents to the ED for the evaluation of ongoing abdominal pain. She is requesting no lab work be done or no imaging be done at this visit. I suspect that her abdominal pain and her cramping is either due to menstrual cramps or abdominal cramps due to recent C. difficile infection. I have ordered 20 mg PO Bentyl, and 4 mg ODT Zofran for initial management. Will reassess after the meds have been given. 08/17/19 20:24 Patient states that she did get some relief from the Zofran and Bentyl. I will give her a few more tablets of bentyl. She thinks she has zofran at home. Departure - Departure Time of Disposition: 20:24 Disposition: Home, Self-Care 01 Condition: Fair Clinical Impression: Abdominal cramping, C. difficile enteritis - Discharge Information *PRESCRIPTION DRUG MONITORING PROGRAM REVIEWED*: No *COPY OF PRESCRIPTION DRUG MONITORING REPORT IN PATIENT JUSTINE: No Instructions: Clostridium Difficile Infection, [id number], Abdominal Pain, Adult, [id number] Referrals: Desire Carver PA-C [Primary Care Provider] - Forms: ED Department Discharge Additional Instructions: You have been evaluated in the ED for nausea/diarrhea. Recommend that you try to limit diet to clear liquids or stick to a bland diet ( BRAT diet would work well) to alleviate symptoms of nausea/diarrhea. You may take Bentyl 20 mg 4 times daily as needed for further pain relief. Please use the Zofran every 8 hours as needed for nausea. You may take 600mg Ibuprofen Q6H PRN for pain relief. Please return to the ED if your symptoms should change or worsen.
== END 2019-08-17 20:43 | disposition home or self-care (01) ==
LOC: JD.ED 19:22
DX: A04.72 Enterocolitis due to Clostridium difficile, not specified as recurrent (principal); J45.909 Unspecified asthma, uncomplicated; K21.9 Gastro-esophageal reflux disease without esophagitis; F41.9 Anxiety disorder, unspecified; Z88.1 Allergy status to other antibiotic agents; Z79.899 Other long term (current) drug therapy; Z79.3 Long term (current) use of hormonal contraceptives
CPT/HCPCS: 99283; A9270

== ENCOUNTER 2019-09-02 15:10 | Emergency (ER) | payer MEDICARE, MEDICAID | END 2019-09-02 15:43 | disposition left against medical advice (07) | LOC: JD.ED 15:10 | DX: Z53.21 Procedure and treatment not carried out due to patient leaving prior to being seen by health care provider (principal) | CPT/HCPCS: 99283 ==

== ENCOUNTER 2019-10-28 17:01 | Emergency (ER) | payer MEDICARE, MEDICAID ==
[2019-10-28 17:18] VITALS: BP 104/63; PULSE 93
--- NOTE | 2019-10-28 17:30 | EDM.PDOC ---
ED HPI GENERAL MEDICAL PROBLEM - General Chief Complaint: Gastrointestinal Problem Stated Complaint: ABDOMINAL PAIN Time Seen by Provider: 10/28/19 17:09 Source of Information: Reports: Patient, RN Notes Reviewed - History of Present Illness INITIAL COMMENTS - FREE TEXT/NARRATIVE: 34-year-old female comes in with abdominal pain. This is been intermittent off and on for many weeks. The last few days the pain has become more bothersome again. Occasional sharp cramping after she eats. As having loose but not watery diarrhea. Not been vomiting. No fever or chills. Does have history of C. difficile that has been treated in the past. Abdominal Pain Score (Numeric/FACES): 5 - Related Data Allergies Allergy/AdvReac Type Severity Reaction Status Date / Time azithromycin Allergy Other Verified 10/28/19 17:18 ciprofloxacin AdvReac Stomach Verified 10/28/19 17:18 Upset doxycycline AdvReac Stomach Verified 10/28/19 17:18 Upset moxifloxacin AdvReac Stomach Verified 10/28/19 17:18 Upset Home Meds: Home Meds Control. 1 tab PO DAILY 09/05/14 [History] Montelukast [Singulair] 10 mg PO DAILY 09/05/14 [History] Albuterol Sulfate [Albuterol Sulfate HFA] 8.5 gm IH Q4HR PRN 02/16/15 [History] FLUoxetine [PROzac] 20 mg PO DAILY 05/08/15 [History] Cetirizine [ZyrTEC] 10 mg PO DAILY PRN 02/06/18 [History] Fluticasone/Salmeterol [Advair 500-50] 1 puff INH BID 02/06/18 [History] Dicyclomine [Bentyl] 10 mg PO TID PRN #20 cap 06/27/18 [Rx] Past Medical History - Past Health History Medical/Surgical History: Denies Medical/Surgical History HEENT History: Reports: Allergic Rhinitis Respiratory History: Reports: Asthma Gastrointestinal History: Reports: GERD, PUD Other Gastrointestinal History: pt has constipation at times, cdiff Genitourinary History: Reports: UTI, Recurrent Other Genitourinary History: Frequent UTI 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 Psychiatric History: Reports: Anxiety Endocrine/Metabolic History: Reports: None Oncologic (Cancer) History: Reports: None - Infectious Disease History Infectious Disease History: Reports: C-Difficile, Chicken Pox, Herpes - Past Surgical History HEENT Surgical History: Reports: Naso-Sinus Surgery, Oral Surgery GI Surgical History: Reports: Colonoscopy, EGD Female Surgical History: Reports: D&C, Oophorectomy Social & Family History - Family History Family Medical History: Noncontributory - Tobacco Use Smoking Status *Q: Never Smoker Second Hand Smoke Exposure: No - Caffeine Use Caffeine Use: Reports: Soda - Recreational Drug Use Recreational Drug Use: No - Living Situation & Occupation Living situation: Reports: Single, Alone Occupation: Unemployed ED ROS GENERAL - Review of Systems Review Of Systems: See Below Constitutional: Denies: Fever, Chills HEENT: Reports: No Symptoms Respiratory: Denies: Shortness of Breath Cardiovascular: Denies: Chest Pain GI/Abdominal: Reports: Abdominal Pain, Diarrhea, Nausea. Denies: Hematochezia, Melena, Vomiting : Reports: No Symptoms Musculoskeletal: Reports: No Symptoms Skin: Reports: No Symptoms Neurological: Reports: No Symptoms ED EXAM, GI/ABD - Physical Exam Exam: See Below General Appearance: Alert, No Apparent Distress Eyes: Bilateral: Normal Appearance Throat/Mouth: Normal Inspection, Normal Oropharynx Head: Atraumatic Neck: Supple Respiratory/Chest: No Respiratory Distress, Lungs Clear, Normal Breath Sounds Cardiovascular: Regular Rate, Rhythm GI/Abdominal Exam: Soft, Non-Tender. No: Guarding Back Exam: No: CVA Tenderness (L), CVA Tenderness (R) Extremities: Normal Inspection, Normal Range of Motion Neurological: Alert, Oriented, No Motor/Sensory Deficits Skin Exam: Warm, Dry, Normal Color Course - Vital Signs Last Recorded V/S: Last Vital Signs Temp 96.9 F 10/28/19 17:17 Pulse 93 10/28/19 17:17 Resp 20 10/28/19 17:17 BP 104/63 10/28/19 17:17 Pulse Ox 100 10/28/19 17:17 Departure - Departure Time of Disposition: 18:06 Disposition: Home, Self-Care 01 Condition: Fair Clinical Impression: Colitis Abdominal pain Qualifiers: Abdominal location: generalized Qualified Code(s): R10.84 - Generalized abdominal pain - Discharge Information Instructions: Abdominal Pain, Adult, [id number] Referrals: Desire Carver PA-C [Primary Care Provider] - Forms: ED Department Discharge Additional Instructions: Probiotic, 1 capsule twice daily. That is available OTC at your local pharmacy. Continue with clear liquids and very careful bland diet as tolerated. You can call your GI specialist clinic Wednesday, talked to his or her nurse for further advice. Continued to drink plenty of water to maintain hydration. Continue to avoid milk and dairy products for now. Sepsis Event Note - Evaluation Sepsis Screening Result: No Definite Risk - Focused Exam Date Exam was Performed: 11/03/19 Time Exam was Performed: 11:27
== END 2019-10-28 18:18 | disposition home or self-care (01) ==
LOC: JD.ED 17:01
DX: K52.9 Noninfective gastroenteritis and colitis, unspecified (principal); J45.909 Unspecified asthma, uncomplicated; F41.9 Anxiety disorder, unspecified; Z79.51 Long term (current) use of inhaled steroids; Z79.899 Other long term (current) drug therapy; Z88.1 Allergy status to other antibiotic agents
CPT/HCPCS: 99283

== ENCOUNTER 2020-09-17 04:50 | Emergency (ER) | payer MEDICARE, MEDICAID ==
--- NOTE | 2020-09-17 05:04 | EDM.PDOC ---
ED HPI GENERAL MEDICAL PROBLEM - General Chief Complaint: Abdominal Pain Stated Complaint: ABDOMINAL PAIN Time Seen by Provider: 09/17/20 05:04 - History of Present Illness INITIAL COMMENTS - FREE TEXT/NARRATIVE: 34-year-old female presents the emergency room with abdominal pain. Patient has a history of ulcerative colitis and thinks this is what is acting up however the patient has not had any diarrhea. She is not had any bloody stools. She may have had some mucousy stools. Yesterday she thought she was constipated and took a stool softener this did not seem to help. She has not had any fevers or chills. This discomfort is been going on for a day or so now. Several months ago patient was treated with something but she cannot remember if it was sulfasalazine mesalamine or what it was called and she cannot recall how often she took it. Already to the patient though she does have ulcerative colitis she has been evaluated by gastroenterology in [place]. Abdomen Pain Score (Numeric/FACES): 8 - Related Data Allergies Allergy/AdvReac Type Severity Reaction Status Date / Time azithromycin Allergy Other Verified 09/17/20 05:00 ciprofloxacin AdvReac Stomach Verified 09/17/20 05:00 Upset doxycycline AdvReac Stomach Verified 09/17/20 05:00 Upset moxifloxacin AdvReac Stomach Verified 09/17/20 05:00 Upset Home Meds: Home Meds Control. 1 tab PO DAILY 09/05/14 [History] Montelukast [Singulair] 10 mg PO DAILY 09/05/14 [History] Albuterol Sulfate [Albuterol Sulfate HFA] 8.5 gm IH Q4HR PRN 02/16/15 [History] FLUoxetine [PROzac] 20 mg PO DAILY 05/08/15 [History] Cetirizine [ZyrTEC] 10 mg PO DAILY PRN 02/06/18 [History] Fluticasone/Salmeterol [Advair 500-50] 1 puff INH BID 02/06/18 [History] Dicyclomine [Bentyl] 10 mg PO TID PRN #20 cap 06/27/18 [Rx] sulfaSALAzine 1,000 mg PO Q8H #42 tab 09/17/20 [Rx] Past Medical History - Past Health History Medical/Surgical History: Denies Medical/Surgical History HEENT History: Reports: Allergic Rhinitis Respiratory History: Reports: Asthma Gastrointestinal History: Reports: GERD, PUD Other Gastrointestinal History: pt has constipation at times, cdiff Genitourinary History: Reports: UTI, Recurrent Other Genitourinary History: Frequent UTI 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 Psychiatric History: Reports: Anxiety Endocrine/Metabolic History: Reports: None Oncologic (Cancer) History: Reports: None - Infectious Disease History Infectious Disease History: Reports: C-Difficile, Chicken Pox, Herpes - Past Surgical History HEENT Surgical History: Reports: Naso-Sinus Surgery, Oral Surgery GI Surgical History: Reports: Colonoscopy, EGD Female Surgical History: Reports: D&C, Oophorectomy Social & Family History - Family History Family Medical History: Noncontributory - Tobacco Use Tobacco Use Status *Q: Never Tobacco User Second Hand Smoke Exposure: No - Caffeine Use Caffeine Use: Reports: Soda - Recreational Drug Use Recreational Drug Use: No - Living Situation & Occupation Living situation: Reports: Single, Alone Occupation: Unemployed ED ROS GENERAL - Review of Systems Review Of Systems: See Below Constitutional: Reports: No Symptoms HEENT: Reports: No Symptoms Respiratory: Reports: No Symptoms Cardiovascular: Reports: No Symptoms Endocrine: Reports: No Symptoms GI/Abdominal: Reports: Abdominal Pain, Constipation. Denies: Diarrhea, Nausea, Vomiting : Reports: No Symptoms Musculoskeletal: Reports: No Symptoms, Muscle Pain Neurological: Reports: No Symptoms ED EXAM, GI/ABD - Physical Exam Exam: See Below Exam Limited By: No Limitations General Appearance: Alert, No Apparent Distress Head: Atraumatic, Normocephalic Neck: Normal Inspection, Supple, Non-Tender, Full Range of Motion Respiratory/Chest: No Respiratory Distress, Lungs Clear, Normal Breath Sounds Cardiovascular: Regular Rate, Rhythm, No Edema, No Murmur GI/Abdominal Exam: Normal Bowel Sounds, Soft, Tender (Discomfort both right left side and upper and lower quadrants no rigidity rebound or guarding.) Back Exam: Normal Inspection. No: CVA Tenderness (L), CVA Tenderness (R) Course - Vital Signs Last Recorded V/S: Last Vital Signs Temp 36.2 C 09/17/20 04:57 Pulse 100 09/17/20 04:57 Resp 20 09/17/20 04:57 BP 113/70 09/17/20 04:57 Pulse Ox 95 09/17/20 04:57 - Orders/Labs/Meds Orders: Active Orders 24 hr Category Date Time Status CULTURE URINE [RM] Stat Lab 09/17/20 06:25 Received UA W/MICROSCOPIC [URIN] Stat Lab 09/17/20 06:25 Results Sodium Chloride 0.9% [Normal Saline] 1,000 ml Med 09/17/20 05:30 Active IV ASDIRECTED Medication Orders Sodium Chloride (Normal Saline) 1,000 mls @ 125 mls/hr IV ASDIRECTED JENA Last Admin: 09/17/20 05:37 Dose: 125 mls/hr Documented by: HERRERA Labs: Laboratory Tests 09/17/20 09/17/20 09/17/20 Range/Units 05:34 05:34 05:34 WBC 11.93 H (3.98-10.04) K/mm3 RBC 5.67 H (3.98-5.22) M/mm3 Hgb 12.2 (11.2-15.7) gm/dl Hct 39.6 (34.1-44.9) % MCV 69.8 L (79.4-94.8) fl MCH 21.5 L (25.6-32.2) pg MCHC 30.8 L (32.2-35.5) g/dl RDW Std Deviation 43.4 (36.4-46.3) fL Plt Count 695 H (182-369) K/mm3 MPV 8.4 L (9.4-12.3) fl Neut % (Auto) 68.7 (34.0-71.1) % Lymph % (Auto) 15.7 L (19.3-51.7) % [place] % (Auto) 8.7 (4.7-12.5) % Eos % (Auto) 6.1 H (0.7-5.8) Baso % (Auto) 0.5 (0.1-1.2) % Neut # (Auto) 8.19 H (1.56-6.13) K/mm3 Lymph # (Auto) 1.87 (1.18-3.74) K/mm3 [place] # (Auto) 1.04 H (0.24-0.36) K/mm3 Eos # (Auto) 0.73 H (0.04-0.36) K/mm3 Baso # (Auto) 0.06 (0.01-0.08) K/mm3 Manual Slide Review Abnormal smear Sodium 138 (136-145) mEq/L Potassium 3.8 (3.5-5.1) mEq/L Chloride 102 (98-107) mEq/L Carbon Dioxide 23 (21-32) mEq/L Anion Gap 16.8 H (5-15) BUN 10 (7-18) mg/dL Creatinine 0.9 (0.55-1.02) mg/dL Est Cr Clr Drug Dosing 87.27 mL/min Estimated GFR (MDRD) > 60 (>60) mL/min BUN/Creatinine Ratio 11.1 L (14-18) Glucose 103 (74-106) mg/dL Calcium 8.1 L (8.5-10.1) mg/dL Total Bilirubin 0.6 (0.2-1.0) mg/dL AST 16 (15-37) U/L ALT 15 (14-59) U/L Alkaline Phosphatase 129 H (46-116) U/L Total Protein 6.7 (6.4-8.2) g/dl Albumin 2.6 L (3.4-5.0) g/dl Globulin 4.1 gm/dL Albumin/Globulin Ratio 0.6 L (1-2) Lipase 133 (73-393) U/L HCG, Qual Negative (NEGATIVE) Urine Color (Yellow) Urine Appearance (Clear) Urine pH (5.0-8.0) Ur Specific [place] (1.005-1.030) Urine Protein (Negative) Urine Glucose (UA) (Negative) Urine Ketones (Negative) Urine Occult Blood (Negative) Urine Nitrite (Negative) Urine Bilirubin (Negative) Urine Urobilinogen (0.2-1.0) Ur Leukocyte Esterase (Negative) 09/17/20 Range/Units 06:25 WBC (3.98-10.04) K/mm3 RBC (3.98-5.22) M/mm3 Hgb (11.2-15.7) gm/dl Hct (34.1-44.9) % MCV (79.4-94.8) fl MCH (25.6-32.2) pg MCHC (32.2-35.5) g/dl RDW Std Deviation (36.4-46.3) fL Plt Count (182-369) K/mm3 MPV (9.4-12.3) fl Neut % (Auto) (34.0-71.1) % Lymph % (Auto) (19.3-51.7) % [place] % (Auto) (4.7-12.5) % Eos % (Auto) (0.7-5.8) Baso % (Auto) (0.1-1.2) % Neut # (Auto) (1.56-6.13) K/mm3 Lymph # (Auto) (1.18-3.74) K/mm3 [place] # (Auto) (0.24-0.36) K/mm3 Eos # (Auto) (0.04-0.36) K/mm3 Baso # (Auto) (0.01-0.08) K/mm3 Manual Slide Review Sodium (136-145) mEq/L Potassium (3.5-5.1) mEq/L Chloride (98-107) mEq/L Carbon Dioxide (21-32) mEq/L Anion Gap (5-15) BUN (7-18) mg/dL Creatinine (0.55-1.02) mg/dL Est Cr Clr Drug Dosing mL/min Estimated GFR (MDRD) (>60) mL/min BUN/Creatinine Ratio (14-18) Glucose (74-106) mg/dL Calcium (8.5-10.1) mg/dL Total Bilirubin (0.2-1.0) mg/dL AST (15-37) U/L ALT (14-59) U/L Alkaline Phosphatase (46-116) U/L Total Protein (6.4-8.2) g/dl Albumin (3.4-5.0) g/dl Globulin gm/dL Albumin/Globulin Ratio (1-2) Lipase (73-393) U/L HCG, Qual (NEGATIVE) Urine Color Yellow (Yellow) Urine Appearance Clear (Clear) Urine pH 6.0 (5.0-8.0) Ur Specific [place] > or = 1.030 (1.005-1.030) Urine Protein Negative (Negative) Urine Glucose (UA) Negative (Negative) Urine Ketones Negative (Negative) Urine Occult Blood Negative (Negative) Urine Nitrite Negative (Negative) Urine Bilirubin Negative (Negative) Urine Urobilinogen 0.2 (0.2-1.0) Ur Leukocyte Esterase 1+ H (Negative) Meds: Medications Generic Name Dose Route Start Last Admin Trade Name Freq PRN Reason Stop Dose Admin Sodium Chloride 1,000 mls @ 125 mls/hr 09/17/20 05:30 09/17/20 05:37 Normal Saline IV 125 mls/hr ASDIRECTED JENA Administration Discontinued Medications Generic Name Dose Route Start Last Admin Trade Name Freq PRN Reason Stop Dose Admin Hydromorphone HCl 0.5 mg 09/17/20 05:26 09/17/20 05:37 Dilaudid IVPUSH 09/17/20 05:27 0.5 mg ONETIME ONE Administration - Re-Assessments/Exams Free Text/Narrative Re-Assessment/Exam: 09/17/20 06:20 Labs show minimally elevated white count urinalysis just obtained. With the mild abnormalities in the labs did discuss the possibility of a CAT scan of the patient would like to hold off on this at this point. Which I think is quite reasonable barring a big abnormality in her UA we will start sulfasalazine 3 g 3 times a day and have her follow-up with gastroenterology this week. 09/17/20 06:35 Discussed pain management with the patient she would like to just use Tylenol at this point 09/17/20 07:07 Urinalysis is not suggestive of UTI we will discharge at this point Departure - Departure Time of Disposition: 07:07 Disposition: Home, Self-Care 01 Clinical Impression: Ulcerative colitis - Discharge Information Prescriptions: sulfaSALAzine 1,000 mg PO Q8H #42 tab Instructions: Ulcerative Colitis, Adult Referrals: Desire Carver PA-C [Primary Care Provider] - Forms: ED Department Discharge, ED Return to Work/School Form Additional Instructions: Return to the emergency room with any questions problems worsening symptoms Take the sulfasalazine 2 every 8 hours. 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 Follow-up with your piano accompanist later this week. Tylenol as needed for discomfort Sepsis Event Note (ED) - Evaluation Sepsis Screening Result: No Definite Risk - Focused Exam Vital Signs: Vital Signs Temp Pulse Resp BP Pulse Ox 09/17/20 04:57 36.2 C 100 20 113/70 95 - My Orders Last 24 Hours: My Active Orders 09/17/20 05:30 Sodium Chloride 0.9% [Normal Saline] 1,000 ml IV ASDIRECTED 09/17/20 06:25 CULTURE URINE [RM] Stat UA W/MICROSCOPIC [URIN] Stat - Assessment/Plan Last 24 Hours: My Active Orders 09/17/20 05:30 Sodium Chloride 0.9% [Normal Saline] 1,000 ml IV ASDIRECTED 09/17/20 06:25 CULTURE URINE [RM] Stat UA W/MICROSCOPIC [URIN] Stat
[2020-09-17] MEDS ORDERED: HYDROmorphone 0.5 MG/0.5 ML Syringe IVPUSH ONE (05:26)
[2020-09-17] MEDS ORDERED: Sodium Chloride 0.9% 1,000 ML IV SCH (05:30)
[2020-09-17 07:30] VITALS: BP 102/69; PULSE 92
== END 2020-09-17 07:27 | disposition home or self-care (01) ==
LOC: JD.ED 04:50
DX: K51.90 Ulcerative colitis, unspecified, without complications (principal); J45.909 Unspecified asthma, uncomplicated; F41.9 Anxiety disorder, unspecified; Z79.899 Other long term (current) drug therapy; Z88.1 Allergy status to other antibiotic agents
CPT/HCPCS: 36415; 80053; 81001; 83690; 84703; 85025; 87086; 96374; 99284; J1170; J7030

== ENCOUNTER 2020-10-12 19:31 | Emergency (ER) | payer MEDICARE, MEDICAID ==
[2020-10-12 19:46] VITALS: BP 121/85; PULSE 90
[2020-10-12] MEDS ORDERED: Sodium Chloride 0.9% 1,000 ML IV SCH (20:15)
--- NOTE | 2020-10-12 20:18 | EDM.PDOC ---
ED HPI GENERAL MEDICAL PROBLEM - General Chief Complaint: Gastrointestinal Problem Stated Complaint: COLITIS FLARE UP Time Seen by Provider: 10/12/20 19:39 Source of Information: Reports: Patient History Limitations: Reports: No Limitations - History of Present Illness INITIAL COMMENTS - FREE TEXT/NARRATIVE: Ms. Odell is a 34-year-old woman who now presents the ED over concern of a possible flare of ulcerative colitis. She states that she was diagnosed with ulcerative colitis by colonoscopy about a year ago, and that she is currently under the care of a Fish Protector in [place]. He states that she developed a generalized abdominal bloating sensation along with mild generalized abdominal pain today. She is unable to describe the character of the pain, other than "it hurts". She also is concerned that she may have some slightly bloody stools that began around 18:00 this evening, although she acknowledges that she is currently on her menstrual period. No recent constipation or diarrhea. No recent nausea, vomiting, or fever. No urinary symptoms. She states that her current symptoms are essentially the same as about a month ago, when she was diagnosed with a flare of her ulcerative colitis, although it is unclear how that diagnosis was made, since she denies that she had a CT at that time. She states that she was treated with a course of steroids, and that her symptoms resolved. Here in the ED, the patient is found to be hemodynamically stable, afebrile, with an oxygen saturation of 100% on room air. Prior to today, the patient denies having a recent fever, chills, sore throat, ear pain, nasal or sinus congestion, cough, dyspnea, chest pain, palpitations, nausea, vomiting, constipation, diarrhea, abdominal pain, urinary symptoms, recent weight gain or weight loss, recent bloody bowel movements or black bowel movements, recent joint aches, headaches, or rashes. The patient's PCP is Desire Carver NP. Her Gastroenterology midlevel is Radhika Handy NP. She does not recall the name of her Manager Of Finance, who she believes is at [facility]. She received an influenza vaccine this season. Left Lower Abdomen Pain Score (Numeric/FACES): 4 - Related Data Allergies Allergy/AdvReac Type Severity Reaction Status Date / Time azithromycin Allergy Other Verified 10/12/20 19:46 ciprofloxacin AdvReac Stomach Verified 10/12/20 19:46 Upset doxycycline AdvReac Stomach Verified 10/12/20 19:46 Upset moxifloxacin AdvReac Stomach Verified 10/12/20 19:46 Upset Home Meds: Home Meds Control. 1 tab PO DAILY 09/05/14 [History] Montelukast [Singulair] 10 mg PO DAILY 09/05/14 [History] Albuterol Sulfate [Albuterol Sulfate HFA] 8.5 gm IH Q4HR PRN 02/16/15 [History] FLUoxetine [PROzac] 20 mg PO DAILY 05/08/15 [History] Cetirizine [ZyrTEC] 10 mg PO DAILY PRN 02/06/18 [History] Fluticasone/Salmeterol [Advair 500-50] 1 puff INH BID 02/06/18 [History] Dicyclomine [Bentyl] 10 mg PO TID PRN #20 cap 06/27/18 [Rx] sulfaSALAzine 1,000 mg PO Q8H #42 tab 09/17/20 [Rx] Past Medical History HEENT History: Reports: Allergic Rhinitis Respiratory History: Reports: Asthma (suspected) Gastrointestinal History: Reports: GERD, Inflammatory Bowel Disease (ulcerative colitis), 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, 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) Psychiatric History: Reports: Anxiety Immunologic History: Reports: Other (See Below) (RA) - Infectious Disease History Infectious Disease History: Reports: C-Difficile, Chicken Pox, Herpes - Past Surgical History HEENT Surgical History: Reports: Naso-Sinus Surgery (05/25/2014), Oral Surgery (dental extractions) GI Surgical History: Reports: Colonoscopy (x 1), EGD (x 1) Female Surgical History: Reports: D&C (x 1), Oophorectomy (unilateral, 2015) Social & Family History - Family History Family Medical History: No Pertinent Family History - Tobacco Use Tobacco Use Status *Q: Never Tobacco User Second Hand Smoke Exposure: No - Caffeine Use Caffeine Use: Reports: None - Alcohol Use Alcohol Use History: No - Recreational Drug Use Recreational Drug Use: No - Living Situation & Occupation Living situation: Reports: Single, Alone 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 ED EXAM, GI/ABD - Physical Exam Exam: See Below Exam Limited By: No Limitations General Appearance: Alert, WD/WN, No Apparent Distress Eyes: Bilateral: Normal Appearance, EOMI Ears: Normal External Exam, Hearing Grossly Normal Nose: Normal Inspection Throat/Mouth: Normal Inspection, Normal Lips, Normal Voice, No Airway Compromise Head: Atraumatic, Normocephalic Neck: Normal Inspection, Full Range of Motion Respiratory/Chest: No Respiratory Distress, Lungs Clear, Normal Breath Sounds, No Accessory Muscle Use Cardiovascular: Normal Peripheral Pulses, Regular Rate, Rhythm, No Edema, No Gallop, No JVD, No Murmur, No Rub GI/Abdominal Exam: Normal Bowel Sounds, Soft, Non-Tender, No Organomegaly, No Distention, No Abnormal Bruit, No Mass Rectal (Female) Exam: Normal Exam, Normal Rectal Tone, Heme - Stool (dark brown). No: Tenderness Back Exam: Normal Inspection, Full Range of Motion, NT Extremities: Normal Inspection, Normal Range of Motion, No Pedal Edema, Normal Capillary Refill Neurological: Alert, Oriented, Normal Cognition, No Motor/Sensory Deficits Psychiatric: Normal Affect Skin Exam: Warm, Dry, Intact, Normal Color, No Rash Course - Vital Signs Last Recorded V/S: Last Vital Signs Temp 36.1 C 10/12/20 19:42 Pulse 90 10/12/20 19:42 Resp 16 10/12/20 19:42 BP 121/85 10/12/20 19:42 Pulse Ox 100 10/12/20 19:42 - Orders/Labs/Meds Orders: Active Orders 24 hr Category Date Time Status Abdomen Pelvis w Cont [CT] Stat Exams 10/12/20 20:10 Ordered CBC WITH MANUAL DIFF [HEME] Stat Lab 10/12/20 20:10 Ordered COMPREHENSIVE METABOLIC PN,CMP [CHEM] Stat Lab 10/12/20 20:10 Ordered HCG QUALITATIVE,URINE [URCHEM] Stat Lab 10/12/20 20:10 Ordered MAGNESIUM [CHEM] Stat Lab 10/12/20 20:10 Ordered UA W/MICROSCOPIC [URIN] Stat Lab 10/12/20 20:19 Ordered Meds: Medications Discontinued Medications Generic Name Dose Route Start Last Admin Trade Name Freq PRN Reason Stop Dose Admin Sodium Chloride 1,000 mls @ 150 mls/hr 10/12/20 20:15 Normal Saline IV ASDIRECTED JENA - Re-Assessments/Exams Free Text/Narrative Re-Assessment/Exam: 10/12/20 20:11 As above, the patient states that she was diagnosed with ulcerative colitis about 1 year ago, and that she developed a bloated feeling with mild generalized abdominal pain with possible bloody stools today. Her stool is heme-negative on rectal exam, and she denies having significant tenderness to palpation of her abdomen. My suspicion for a flare of her ulcerative colitis is low, however, I have ordered a work-up that includes blood work and a CT of her abdomen and pelvis with oral and IV contrast although the patient states that she is very reluctant to drink oral contrast. Because she states that she has a history of frequent urinary tract infections, even though she denies urinary symptoms at this time, I have also ordered a urinalysis by clean-catch. In the meantime, the patient will be given IV fluid. 10/12/20 20:21 Notified by Sherry TOMAS that the patient is refusing to have her blood drawn or undergo the CT scan. She told Sherry that she doesn't want to undergo a bunch of tests, but that she just wants to be given steroids. 10/12/20 20:26 I talked with the patient. She does not understand why she would need to undergo tests, since she just had tests done last month. I explained that her symptoms resolved, and that in order to determine if she is suffering from a repeat flare of colitis, that we would need to do new tests for her current symptoms. The patient does not seem to understand that, and wants to leave, immediately. Departure - Departure Time of Disposition: 20:27 Disposition: Home, Self-Care 01 Condition: Good Clinical Impression: Abdominal pain of unknown etiology - Discharge Information *PRESCRIPTION DRUG MONITORING PROGRAM REVIEWED*: Not Applicable *COPY OF PRESCRIPTION DRUG MONITORING REPORT IN PATIENT JUSTINE: Not Applicable Instructions: Abdominal Pain, Adult, [id number] Referrals: Desire Carver PA-C [Primary Care Provider] - Forms: ED Department Discharge Additional Instructions: You were seen in the emergency room after developing a generalized abdominal bloating feeling and mild abdominal discomfort, along with possible bloody stools today. A work-up, including blood work, a urinalysis, a urine test, and a CT scan of your abdomen and pelvis was ordered, however, you have decided to not undergo any tests. Without any testing, we cannot determine the cause of your symptoms. You have elected to go home and follow-up with your Gastroenterology midlevel. If you change your mind and would like to be evaluated, please do not hesitate to return to the ER. Sepsis Event Note (ED) - Evaluation Sepsis Screening Result: No Definite Risk - Focused Exam Vital Signs: Vital Signs Temp Pulse Resp BP Pulse Ox 10/12/20 19:42 36.1 C 90 16 121/85 100 - My Orders Last 24 Hours: My Active Orders 10/12/20 20:10 Abdomen Pelvis w Cont [CT] Stat CBC WITH MANUAL DIFF [HEME] Stat COMPREHENSIVE METABOLIC PN,CMP [CHEM] Stat HCG QUALITATIVE,URINE [URCHEM] Stat MAGNESIUM [CHEM] Stat 10/12/20 20:19 UA W/MICROSCOPIC [URIN] Stat - Assessment/Plan Last 24 Hours: My Active Orders 10/12/20 20:10 Abdomen Pelvis w Cont [CT] Stat CBC WITH MANUAL DIFF [HEME] Stat COMPREHENSIVE METABOLIC PN,CMP [CHEM] Stat HCG QUALITATIVE,URINE [URCHEM] Stat MAGNESIUM [CHEM] Stat 10/12/20 20:19 UA W/MICROSCOPIC [URIN] Stat
== END 2020-10-12 20:33 | disposition home or self-care (01) ==
LOC: JD.ED 19:31
DX: R10.84 Generalized abdominal pain (principal); J45.909 Unspecified asthma, uncomplicated; F41.9 Anxiety disorder, unspecified; Z79.899 Other long term (current) drug therapy; Z88.1 Allergy status to other antibiotic agents
CPT/HCPCS: 99283

== ENCOUNTER 2020-11-10 02:29 | Emergency (ER) | payer MEDICARE, MEDICAID ==
[2020-11-10 02:47] VITALS: PULSE 75
--- NOTE | 2020-11-10 03:50 | EDM.PDOC ---
ED HPI GENERAL MEDICAL PROBLEM - General Chief Complaint: Gastrointestinal Problem Stated Complaint: COLITIS FLARE UP Time Seen by Provider: 11/10/20 03:22 Source of Information: Reports: Patient History Limitations: Reports: No Limitations - History of Present Illness INITIAL COMMENTS - FREE TEXT/NARRATIVE: Ms. Odell is a 35-year-old woman with a past medical history significant for ulcerative colitis diagnosed by colonoscopy about a year ago, on sulfasalazine, who now presents to the ED with lower abdominal pain, "sore" in character, that has been coming and going since yesterday, 11/09/2020. She states that she believes that she is having a flare of her ulcerative colitis. She is unable to tell me the duration or frequency of her symptoms. She has not brayden ntified any modifiers. No recent fever, nausea, vomiting, constipation, diarrhea, or hematochezia - she states that her bowel movements are normal. She states that she took a single Tylenol yesterday, which did not seem to help. She also states that she has been taking her previously prescribed Bentyl, with her most recent dose around 22:00. The patient's states that she was seen at the walk-in clinic yesterday, where blood, urine, and stool were sent for tests, however, she was not prescribed any medications. The patient's LMP was this past 11/06/2020, ending yesterday. The patient states that she is a scheduled to undergo a colonoscopy on 11/19/2020. Here in the ED, the patient is found to be hemodynamically stable, afebrile, saturating 97% on room air. Prior to Wednesday, the patient denies having a recent fever, chills, sore throat, ear pain, nasal or sinus congestion, cough, dyspnea, chest pain, palpitations, nausea, vomiting, constipation, diarrhea, abdominal pain, urinary symptoms, recent weight gain or weight loss, recent bloody bowel movements or black bowel movements, recent joint aches, headaches, or rashes. The patient's PCP is Desire Carver NP. Her gastroenterology midlevel is Radhika Handy NP. Her Dice Spotter is Dr. Zaki Luna. She does not recall the name of her Financial Services Assistant, who she believes is at [facility]. She already received an influenza vaccine this season. Lower Abdominal Pain Score (Numeric/FACES): 8 - Related Data Allergies Allergy/AdvReac Type Severity Reaction Status Date / Time azithromycin Allergy Other Verified 11/10/20 02:47 ciprofloxacin AdvReac Stomach Verified 11/10/20 02:47 Upset doxycycline AdvReac Stomach Verified 11/10/20 02:47 Upset moxifloxacin AdvReac Stomach Verified 11/10/20 02:47 Upset Home Meds: Home Meds Control. 1 tab PO DAILY 09/05/14 [History] Montelukast [Singulair] 10 mg PO DAILY 09/05/14 [History] Albuterol Sulfate [Albuterol Sulfate HFA] 8.5 gm IH Q4HR PRN 02/16/15 [History] FLUoxetine [PROzac] 20 mg PO DAILY 05/08/15 [History] Cetirizine [ZyrTEC] 10 mg PO DAILY PRN 02/06/18 [History] Fluticasone/Salmeterol [Advair 500-50] 1 puff INH BID 02/06/18 [History] Dicyclomine [Bentyl] 10 mg PO TID PRN #20 cap 06/27/18 [Rx] Past Medical History HEENT History: Reports: Allergic Rhinitis Respiratory History: Reports: Asthma (suspected, not tested) Gastrointestinal History: Reports: GERD, Inflammatory Bowel Disease (ulcerative colitis), 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, 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) Psychiatric History: Reports: Anxiety Hematologic History: Reports: Anemia Immunologic History: Reports: Other (See Below) (Rheumatoid arthritis) - Infectious Disease History Infectious Disease History: Reports: C-Difficile, Chicken Pox, Herpes - Past Surgical History HEENT Surgical History: Reports: Naso-Sinus Surgery (05/25/2014), Oral Surgery (dental extractions) GI Surgical History: Reports: Colonoscopy (x 1), EGD (x 1) Female Surgical History: Reports: D&C (x 1), Oophorectomy (unilateral, 2015) Social & Family History - Tobacco Use Tobacco Use Status *Q: Never Tobacco User - Caffeine Use Caffeine Use: Reports: Soda - Alcohol Use Alcohol Use History: No - Recreational Drug Use Recreational Drug Use: No - Living Situation & Occupation Living situation: Reports: Single, Alone 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 ED EXAM, GI/ABD - Physical Exam Exam: See Below Exam Limited By: No Limitations General Appearance: Alert, WD/WN, No Apparent Distress Eyes: Bilateral: Normal Appearance, EOMI Ears: Normal External Exam, Hearing Grossly Normal Nose: Normal Inspection Throat/Mouth: Normal Voice, No Airway Compromise, Other (Wearing a mask) Head: Atraumatic, Normocephalic Neck: Normal Inspection, Full Range of Motion Respiratory/Chest: No Respiratory Distress, Lungs Clear, Normal Breath Sounds, No Accessory Muscle Use Cardiovascular: Normal Peripheral Pulses, Regular Rate, Rhythm, No Gallop, No JVD, No Murmur, No Rub GI/Abdominal Exam: Normal Bowel Sounds, Soft, No Organomegaly, No Distention, No Abnormal Bruit, No Mass, Tender (generalized, non-focal, however, the patient moves around on the gurney quickly and easily without apparent pain) Back Exam: Normal Inspection, Full Range of Motion, NT Extremities: Normal Inspection, Normal Range of Motion, Normal Capillary Refill Neurological: Alert, Oriented, Normal Cognition, No Motor/Sensory Deficits Psychiatric: Normal Affect Skin Exam: Warm, Dry, Intact, Normal Color, No Rash Course - Vital Signs Last Recorded V/S: Last Vital Signs Temp 35.8 C L 11/10/20 02:43 Pulse 75 11/10/20 02:43 Resp 18 11/10/20 02:43 BP Pulse Ox 97 11/10/20 02:43 - Re-Assessments/Exams Free Text/Narrative Re-Assessment/Exam: 11/10/20 03:45 As above, the patient reports lower abdominal pain since yesterday, with normal, non-bloody stools, and no recent fever. She was seen at the walk-in clinic yesterday where blood, urine, and stool were collected, with no prescriptions being given. I explained to the patient that I do not have access to their test results, and in order to evaluate her to see if she is suffering from a flare of her ulcerative colitis, I would need to recollect blood, along with some urine. Because she does not have fever or bloody diarrhea, I do not feel that an emergency CT of her abdomen and pelvis is necessary. Nevertheless, just like the last time that I saw the patient on 10/12/2020, the patient would prefer treatment without evaluation, and would therefore now like to go home. Departure - Departure Time of Disposition: 03:47 Disposition: Home, Self-Care 01 Condition: Good Clinical Impression: Lower abdominal pain of unknown etiology - Discharge Information *PRESCRIPTION DRUG MONITORING PROGRAM REVIEWED*: Not Applicable *COPY OF PRESCRIPTION DRUG MONITORING REPORT IN PATIENT JUSTINE: Not Applicable Instructions: Abdominal Pain, Adult, [id number] Referrals: Desire Carver PA-C [Primary Care Provider] - Zaki Luna MD [Ordering Only Provider] - Forms: ED Department Discharge Additional Instructions: You were seen in the emergency room for lower abdominal pain that has been coming and going since yesterday. A work-up, including blood work, urinalysis, and a urine test were offered, but declined. Without any testing, we cannot determine the cause of your symptoms. You have elected to go home and take your previously prescribed Bentyl. If you change your mind and would like to be evaluated, please do not hesitate to return to the ER. Sepsis Event Note (ED) - Evaluation Sepsis Screening Result: No Definite Risk - Focused Exam Vital Signs: Vital Signs Temp Pulse Resp Pulse Ox 11/10/20 02:43 35.8 C L 75 18 97
== END 2020-11-10 03:56 | disposition home or self-care (01) ==
LOC: JD.ED 02:29
DX: R10.30 Lower abdominal pain, unspecified (principal); F41.9 Anxiety disorder, unspecified; Z88.1 Allergy status to other antibiotic agents; Z79.899 Other long term (current) drug therapy
CPT/HCPCS: 99283

== ENCOUNTER 2021-09-23 06:54 | Emergency (ER) | payer MEDICARE, MEDICAID ==
[2021-09-23 07:34] VITALS: BP 125/83; PULSE 100
--- NOTE | 2021-09-23 07:40 | EDM.PDOC ---
ED HPI GENERAL MEDICAL PROBLEM - General Chief Complaint: Abdominal Pain Stated Complaint: ABDOMINAL PAIN Time Seen by Provider: 09/23/21 07:35 Source of Information: Reports: Patient History Limitations: Reports: No Limitations - History of Present Illness INITIAL COMMENTS - FREE TEXT/NARRATIVE: 35-year-old female presents to the ED with complaints of diffuse periumbilical abdominal pain which seems to be constant with an intermittent colicky component. Pain does not radiate through to her back. It is associate with nausea without vomiting. No diarrhea. No fever or chills. She believes she was exposed to coworkers with gastroenteritis over the last few days. She denies any dysuria urgency or frequency. Denies any possibility of . She has had no previous abdominal surgery. Onset: Sudden Onset Date: 09/22/21 Onset Time: 22:00 Duration: Hour(s):, Waxing/Waning Location: Reports: Abdomen (Diffuse periumbilical abdominal pain with a colicky component) Quality: Reports: Ache, Sharp (Intermittent sharp stabbing pain), Stabbing Severity: Moderate Improves with: Reports: None Worsens with: Reports: None Context: Reports: Sick Contact (Exposure to coworkers with gastroenteritis). Denies: Activity, Exercise, Lifting, Trauma Associated Symptoms: Reports: Loss of Appetite, Nausea/Vomiting. Denies: Chest Pain, Cough, cough w sputum, Diaphoresis, Fever/Chills, Headaches, Malaise, Rash, Seizure, Shortness of Breath, Syncope, Weakness (Nausea without vomiting) Treatments [employer]OU[employer] SPECIALIST: Reports: Other (see below) Middle Abdominal Pain Score (Numeric/FACES): 9 - Related Data Allergies Allergy/AdvReac Type Severity Reaction Status Date / Time azithromycin Allergy Other Verified 09/23/21 07:34 ciprofloxacin AdvReac Stomach Verified 09/23/21 07:34 Upset doxycycline AdvReac Stomach Verified 09/23/21 07:34 Upset moxifloxacin AdvReac Stomach Verified 09/23/21 07:34 Upset Home Meds: Home Meds Control. 1 tab PO DAILY 09/05/14 [History] Montelukast [Singulair] 10 mg PO DAILY 09/05/14 [History] Albuterol Sulfate [Albuterol Sulfate HFA] 8.5 gm IH Q4HR PRN 02/16/15 [History] FLUoxetine [PROzac] 20 mg PO DAILY 05/08/15 [History] Cetirizine [ZyrTEC] 10 mg PO DAILY PRN 02/06/18 [History] Fluticasone/Salmeterol [Advair 500-50] 1 puff INH BID 02/06/18 [History] Mesalamine [Delzicol] 400 mg PO QID 03/02/21 [History] Ondansetron [Zofran] 4 mg BUCCAL Q6H PRN #8 tab 09/23/21 [Rx] Zinc 50 mg PO DAILY 09/23/21 [History] Past Medical History - Past Health History Medical/Surgical History: Denies Medical/Surgical History HEENT History: Reports: Allergic Rhinitis Respiratory History: Reports: Asthma Gastrointestinal History: Reports: GERD, Inflammatory Bowel Disease, PUD, Other (See Below) Other Gastrointestinal History: pt has constipation at times, cdiff, ulcerative colitis Genitourinary History: Reports: UTI, Recurrent Other Genitourinary History: Frequent UTI 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 Psychiatric History: Reports: Anxiety Endocrine/Metabolic History: Reports: None Hematologic History: Reports: Anemia Immunologic History: Reports: Other (See Below) Oncologic (Cancer) History: Reports: None - Infectious Disease History Infectious Disease History: Reports: C-Difficile, Chicken Pox, Herpes - Past Surgical History HEENT Surgical History: Reports: Naso-Sinus Surgery, Oral Surgery GI Surgical History: Reports: Colonoscopy, EGD Female Surgical History: Reports: D&C, Oophorectomy Social & Family History - Family History Family Medical History: No Pertinent Family History - Caffeine Use Caffeine Use: Reports: Soda - Living Situation & Occupation Living situation: Reports: Single, Alone 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 Denies: Fever, Chills, Malaise, Weakness, Weight Loss HEENT: Reports: No Symptoms Respiratory: Reports: No Symptoms Cardiovascular: Reports: No Symptoms Endocrine: Reports: Fatigue GI/Abdominal: Reports: Abdominal Pain (See history of present illness), Nausea : Reports: No Symptoms Musculoskeletal: Reports: No Symptoms Skin: Reports: No Symptoms Neurological: Reports: No Symptoms Psychiatric: Reports: No Symptoms Hematologic/Lymphatic: Reports: No Symptoms Immunologic: Reports: No Symptoms ED EXAM, GI/ABD - Physical Exam Exam: See Below Exam Limited By: No Limitations General Appearance: Alert, WD/WN, No Apparent Distress, Other (Temperature is 35.9 degrees. Heart rate 100 and sinus respiratory 16 with O2 sats of 97% room air. BP 125/83) Throat/Mouth: Other (Tongue is mildly dry and coated) Head: Atraumatic, Normocephalic Neck: Normal Inspection, Supple, Non-Tender, Full Range of Motion. No: Lymphadenopathy (L), Lymphadenopathy (R) Respiratory/Chest: No Respiratory Distress, Lungs Clear, Normal Breath Sounds, No Accessory Muscle Use Cardiovascular: Normal Peripheral Pulses, Regular Rate, Rhythm, No Edema, No Gallop, No Murmur, No Rub GI/Abdominal Exam: No Organomegaly (Slightly distended and tympany to percussion epigastrium), Distended, Tender (Tenderness periumbilical and right lower quadrant), Abnormal Bowel Sounds (Bowel sounds are mildly hyperactive in all 4 quadrants.), Other (No surgical scars. Abdominal striae particularly noted on the left hemiabdomen). No: Guarding, Rigid, Rebound Back Exam: Normal Inspection, Full Range of Motion. No: CVA Tenderness (L), CVA Tenderness (R) Extremities: Normal Inspection, Normal Range of Motion, Non-Tender, No Pedal Edema Neurological: Alert, Oriented, CN II-XII Intact, Normal Cognition Psychiatric: Normal Affect, Normal Mood, Anxious Skin Exam: Warm, Dry (Mildly anxious), Intact, Normal Color, No Rash Course - Vital Signs Last Recorded V/S: Last Vital Signs Temp 35.9 C L 09/23/21 07:27 Pulse 100 09/23/21 07:27 Resp 16 09/23/21 07:27 BP 125/83 09/23/21 07:27 Pulse Ox 97 09/23/21 07:27 - Orders/Labs/Meds Orders: Active Orders 24 hr Category Date Time Status Abdomen 1V Flat [CR] Stat Exams 09/23/21 07:40 Taken HCG QUALITATIVE,URINE [URCHEM] Stat Lab 09/23/21 07:48 Received URINALYSIS W/MICROSCOPIC [UA W/MICROSCOPIC] [URIN] Stat Lab 09/23/21 07:48 Results Labs: Laboratory Tests 09/23/21 Range/Units 07:48 Urine Color Yellow (Yellow) Urine Appearance Clear (Clear) Urine pH 5.5 (5.0-8.0) Ur Specific [place] > or = 1.030 (1.005-1.030) Urine Protein Trace H (Negative) Urine Glucose (UA) Negative (Negative) Urine Ketones Trace H (Negative) Urine Occult Blood 1+ H (Negative) Urine Nitrite Negative (Negative) Urine Bilirubin Negative (Negative) Urine Urobilinogen 0.2 (0.2-1.0) Ur Leukocyte Esterase 1+ H (Negative) Meds: Medications Discontinued Medications Generic Name Dose Route Start Last Admin Trade Name Freq PRN Reason Stop Dose Admin Ondansetron HCl 4 mg 09/23/21 07:41 09/23/21 07:46 Ondansetron 4 Mg Tab.Dis PO 09/23/21 07:42 4 mg ONETIME ONE Administration - Radiology Interpretation Free Text/Narrative:: 35-year-old female presents to the ED complaining of diffuse intermittent periumbilical abdominal pain that kept her awake most of last night. Associated nausea without vomiting. She is afebrile at present. Ear nose and throat exam reveals mild dryness of her tongue. Lungs are clear to auscultation percussion abdomen shows bowel sounds increased frequency throughout all 4 quadrants. Mildly tympanic to percussion epigastrium. Benign abdomen otherwise. Plan KUB urinalysis to be obtained. Zofran 4 mg sublingual at this time - Re-Assessments/Exams Free Text/Narrative Re-Assessment/Exam: 09/23/21 08:11 Urinalysis reveals trace of protein trace of ketones 1+ occult blood 1+ leukocyte esterase with micro pending. KUB reveals increased stool throughout the right hemicolon portions of the transverse colon and descending colon. No signs of bowel obstruction Departure - Departure Time of Disposition: 08:20 Disposition: Home, Self-Care 01 Condition: Fair Clinical Impression: Constipation by delayed colonic transit, Nausea Abdominal pain Qualifiers: Abdominal location: generalized Qualified Code(s): R10.84 - Generalized abdominal pain - Discharge Information *PRESCRIPTION DRUG MONITORING PROGRAM REVIEWED*: Not Applicable *COPY OF PRESCRIPTION DRUG MONITORING REPORT IN PATIENT JUSTINE: Not Applicable Prescriptions: Ondansetron [Zofran] 4 mg BUCCAL Q6H PRN #8 tab PRN Reason: nausea or vomiting Instructions: Nausea, Adult, Constipation, Adult, [id number], Abdominal Pain, Adult, [id number] Referrals: Desire Carver PA-C [Primary Care Provider] - Forms: ED Department Discharge, ED Return to Work/School Form Additional Instructions: Evaluation in the emergency room today in regards to diffuse mid abdominal pain associate with nausea. Examination reveals increased bowel sounds throughout the abdomen on examination. X-ray of the abdomen reveals increased stool throughout the right hemicolon portions of the transverse colon which is across the upper abdomen and portions of the descending colon on the left side of your abdomen compatible with mild constipation. I would suggest MiraLAX 3 scoops with 20 ounces of Gatorade once today to help provide bowel cleanse. Zofran 4 mg under the tongue every 6 hours as needed for relief of nausea or vomiting. Y ou were given 1 in the ED and the next one would not be due until after 2 PM today. Suggest home from work today. Clear fluid diet such as chicken noodle or turkey rice soup etc. Sepsis Event Note (ED) - Evaluation Sepsis Screening Result: No Definite Risk - Focused Exam Vital Signs: Vital Signs Temp Pulse Resp BP Pulse Ox 09/23/21 07:27 35.9 C L 100 16 125/83 97 - My Orders Last 24 Hours: My Active Orders 09/23/21 07:40 Abdomen 1V Flat [CR] Stat 09/23/21 07:48 HCG QUALITATIVE,URINE [URCHEM] Stat URINALYSIS W/MICROSCOPIC [UA W/MICROSCOPIC] [URIN] Stat - Assessment/Plan Last 24 Hours: My Active Orders 09/23/21 07:40 Abdomen 1V Flat [CR] Stat 09/23/21 07:48 HCG QUALITATIVE,URINE [URCHEM] Stat URINALYSIS W/MICROSCOPIC [UA W/MICROSCOPIC] [URIN] Stat
[2021-09-23] MEDS ORDERED: Ondansetron 4 MG Tab.DIS PO ONE (07:41)
--- NOTE | 2021-09-23 08:40 | CR ---
Abdomen: Supine view of the abdomen was obtained. Comparison: Prior abdominal x-ray of 05/23/20. Bowel gas pattern is normal. Bony structures appear within normal limits for the patient's age. No abnormal calcifications are seen. No soft tissue abnormality is appreciated. Impression: 1. Nothing acute is seen on supine abdominal x-ray. Diagnostic code #1
== END 2021-09-23 08:55 | disposition home or self-care (01) ==
LOC: JD.ED 06:54
DX: K59.01 Slow transit constipation (principal); J45.909 Unspecified asthma, uncomplicated; Z88.1 Allergy status to other antibiotic agents; Z79.899 Other long term (current) drug therapy
CPT/HCPCS: 74018; 81001; 81025; 87086; 99284; A9270

== ENCOUNTER 2021-12-12 16:32 | Emergency (ER) | payer MEDICARE, MEDICAID ==
[2021-12-12 16:48] VITALS: BP 132/83; PULSE 105
== END 2021-12-12 18:16 | disposition home or self-care (01) ==
LOC: JD.ED 16:32 → SUPCPDRO 16:32 → JD.ED 18:16
DX: U07.1 COVID-19 (principal); R00.0 Tachycardia, unspecified; J45.909 Unspecified asthma, uncomplicated; Z88.1 Allergy status to other antibiotic agents; Z79.899 Other long term (current) drug therapy
CPT/HCPCS: 71045; 71045-26; 93005; 99285-25

== ENCOUNTER 2022-10-07 23:49 | Emergency (ER) | payer MEDICARE, MEDICAID ==
[2022-10-08 00:05] VITALS: BP 135/88; PULSE 90
[2022-10-08] MEDS ORDERED: Ondansetron 4 MG Tab.DIS PO ONE (00:33)
[2022-10-08 00:47] LABS: CORONAVIRUS COVID-19 NAA NEGATIVE (NEGATIVE)
[2022-10-08] MEDS ORDERED: Orphenadrine 100 MG Tab.ER PO STA (01:05)
== END 2022-10-08 01:36 | disposition home or self-care (01) ==
LOC: JD.ED 23:49
DX: G44.209 Tension-type headache, unspecified, not intractable (principal); J06.9 Acute upper respiratory infection, unspecified; Z88.1 Allergy status to other antibiotic agents; Z88.8 Allergy status to other drugs, medicaments and biological substances; Z79.899 Other long term (current) drug therapy; Z20.822 Contact with and (suspected) exposure to COVID-19
CPT/HCPCS: 0241U; 99284; A9270

== ENCOUNTER 2022-11-03 19:39 | Emergency (ER) | payer MEDICARE, MEDICAID | END 2022-11-03 20:07 | disposition left against medical advice (07) | LOC: JD.ED 19:39 | DX: Z53.21 Procedure and treatment not carried out due to patient leaving prior to being seen by health care provider (principal) ==

== ENCOUNTER 2023-03-23 23:53 | Emergency (ER) | payer MEDICARE, MEDICAID ==
[2023-03-24] MEDS: Acetaminophen/HYDROcodone 325-5 MG Tab PO ONE (00:42)
[2023-03-24 01:49] VITALS: BP 92/57; PULSE 97
== END 2023-03-24 01:49 | disposition home or self-care (01) ==
LOC: JD.ED 23:53
DX: R10.84 Generalized abdominal pain (principal); Z88.0 Allergy status to penicillin; Z88.1 Allergy status to other antibiotic agents; Z79.899 Other long term (current) drug therapy
CPT/HCPCS: 99283; A9270

== ENCOUNTER 2023-08-26 16:32 | Emergency (ER) | payer MEDICARE, MEDICAID ==
[2023-08-26] MEDS ORDERED: Dicyclomine 10 MG Cap PO ONE (17:04)
[2023-08-26] MEDS ORDERED: Ketorolac 30 MG/ML SDV IM ONE (17:04)
[2023-08-26 17:18] LABS: APPEARANCE,URINE CLEAR (Clear); BILIRUBIN,URINE NEGATIVE (Negative); COLOR,URINE YELLOW (Yellow); GLUCOSE,URINE NEGATIVE (Negative); KETONES,URINE NEGATIVE (Negative); LEUKOCYTE ESTERASE,URINE TRACE (Negative); NITRITE,URINE NEGATIVE (Negative); OCCULT BLOOD,URINE TRACE-LYSED (Negative); PROTEIN,URINE TRACE (Negative); UROBILINOGEN,URINE 0.2 (0.2-1.0)
[2023-08-26 17:40] LABS: BACTERIA,URINE MODERATE /hpf (FEW); MUCUS,URINE MODERATE /hpf (FEW); RBC,URINE 0-5 /hpf (0-5); WBC,URINE 0-5 /hpf (0-5)
[2023-08-26 18:40] VITALS: BP 128/90; PULSE 79
== END 2023-08-26 18:40 | disposition home or self-care (01) ==
LOC: JD.ED 16:32
DX: R10.9 Unspecified abdominal pain (principal); J45.909 Unspecified asthma, uncomplicated; E66.9 Obesity, unspecified; Z86.16 Personal history of COVID-19; Z79.899 Other long term (current) drug therapy; Z88.1 Allergy status to other antibiotic agents; Z68.33 Body mass index [BMI] 33.0-33.9, adult
CPT/HCPCS: 81001; 96372; 99284; A9270; J1885

== ENCOUNTER 2024-01-23 11:45 | Emergency (ER) | payer MEDICARE ==
[2024-01-23 11:53] VITALS: BP 104/54; PULSE 93
[2024-01-23] MEDS: Metoclopramide 10 MG/2 ML SDV IVPUSH ONE (12:10)
[2024-01-23] MEDS: Dextrose 5%-Lactated Ringers 1,000 ML IV SCH (12:10)
[2024-01-23] MEDS: Ketorolac 30 MG/ML SDV IVPUSH SCH (12:10)
== END 2024-01-23 12:40 | disposition left against medical advice (07) ==
LOC: JD.ED 11:45
DX: A08.4 Viral intestinal infection, unspecified (principal); E66.9 Obesity, unspecified; Z68.31 Body mass index [BMI] 31.0-31.9, adult; Z88.0 Allergy status to penicillin; Z88.1 Allergy status to other antibiotic agents; Z88.8 Allergy status to other drugs, medicaments and biological substances; Z86.16 Personal history of COVID-19; Z79.899 Other long term (current) drug therapy
CPT/HCPCS: 96374; 96375; 99284; J1885; J2765; J7121; 99283

== ENCOUNTER 2024-12-26 04:17 | Emergency (ER) | payer MEDICARE, OTHER ==
[2024-12-26 04:35] VITALS: BP 152/106; PULSE 83
[2024-12-26] MEDS: Metoclopramide 10 MG Tab PO ONE (04:41)
[2024-12-26] MEDS: Ketorolac 30 MG/ML SDV IM ONE (04:41)
[2024-12-26] MEDS: diphenhydrAMINE 25 MG Cap PO ONE (04:41)
== END 2024-12-26 05:00 | disposition home or self-care (01) ==
LOC: JD.ED 04:17
DX: J01.90 Acute sinusitis, unspecified (principal); E66.9 Obesity, unspecified; Z86.16 Personal history of COVID-19; Z79.51 Long term (current) use of inhaled steroids; Z79.899 Other long term (current) drug therapy; Z88.1 Allergy status to other antibiotic agents; Z88.0 Allergy status to penicillin; Z68.36 Body mass index [BMI] 36.0-36.9, adult
CPT/HCPCS: 96372; 99283; A9270; J1885

== ENCOUNTER 2025-03-20 03:42 | Emergency (ER) | payer MEDICARE, MEDICAID ==
[2025-03-20 03:59] VITALS: BP 150/100; PULSE 86
== END 2025-03-20 04:15 | disposition left against medical advice (07) ==
LOC: JD.ED 03:42
DX: Z53.21 Procedure and treatment not carried out due to patient leaving prior to being seen by health care provider (principal)